=== PATIENT | male | born 1950 | race American Indian/Alaskan Native ===

== ENCOUNTER 2016-06-28 13:00 | Emergency (ER) | payer MEDICARE ==
[2016-06-28 15:36] LABS: Hematocrit 46.6 % (35.5-45.6); Hemoglobin 14.7 gm/dl (11.8-15.2); Mean Corpuscular HGB Conc 32 % (32-34); Mean Corpuscular Hemoglobin 29 pg (28-32); Mean Corpuscular Volume 90 fl (84-94); Platelet Count 274 K/mm3 (140-440); Red Blood Count 5.16 M/mm3 (3.65-5.03); Red Cell Distribution Width 17.3 % (13.2-15.2); White Blood Count 12.6 K/mm3 (4.5-11.0)
[2016-06-28 15:36] LABS: Bilirubin,Urine NEG (Negative); Blood,Urine MOD (Negative); Ketones,Urine 20 mg/dL (Negative); Leukocyte Esterase,Urine NEG (Negative); Mucus,Urine 3+ /HPF; Nitrite,Urine NEG (Negative); Urobilinogen,Urine < 2.0 mg/dL (<2.0)
[2016-06-28 16:01] LABS: Alanine Aminotransferase 10 units/L (7-56); Albumin 3.9 g/dL (3.9-5); Albumin/Globulin Ratio 0.9 %; Alkaline Phosphatase 114 units/L (35-129); Anion Gap 19 mmol/L; Bilirubin,Total 0.6 mg/dL (0.1-1.2); Blood Urea Nitrogen 12 mg/dL (9-20); Calcium 9.2 mg/dL (8.4-10.2); Carbon Dioxide 24 mmol/L (22-30); Chloride 97.8 mmol/L (98-107); Glucose 157 mg/dL (75-100); Lipase 35 units/L (13-60); Potassium 3.9 mmol/L (3.6-5.0); Sodium 137 mmol/L (137-145); Total Protein 8.1 g/dL (6.3-8.2)
[2016-06-28] MEDS ORDERED: NACL 0.9% 500 ML 500 ML IV ONE (19:44)
[2016-06-28] MEDS ORDERED: ROCEPHIN/NS 1 GM/50 ML 1 GM/50 ML BAG IV ONE (19:45)
[2016-06-28] MEDS ORDERED: NORMODYNE IV ONE (19:45)
[2016-06-28] MEDS ORDERED: NACL ONE (19:48)
--- NOTE | 2016-06-28 19:51 | Emergency Department Report ---
HPI - General Chief Complaint: Abdominal Pain Time Seen by Provider: 06/28/16 19:34 - HPI HPI: This is a 65-year-old Afro-[place] male who presents the emergency department after driving himself in to be seen with complaint of intermittent abdominal pain since Saturday. The patient says that he ate a bologna sandwich on Saturday, 4 days ago, and started having these pains at that time. The pain is been mostly in the lower abdomen but sometimes will radiate to the left and/or right flanks. Today only was associated with some nausea and some retching but there was no actual vomitus. The patient says that the pains last about 5 seconds at a time but many times per hour. Last night the patient tried drinking some Epsom salt and water and did not have any relief. He denies any past medical history but also has not seen a primary care doctor in over 10 years. No recent travel or sick contacts at home. He does have one surgical history of an umbilical hernia repair. ED Past Medical Hx - Past Medical History Previous Medical History?: No - Surgical History Past Surgical History?: Yes Additional Surgical History: umbilical hernia - Social History Smoking Status: Never Smoker Substance Use Type: Alcohol - Medications Home Medications: Home Medications Medication Instructions Recorded Confirmed Last Taken Type HYDROcodone/APAP 5-325 [Armour 1 each PO Q6HR PRN #14 tablet 06/28/16 Unknown Rx 5/325] amLODIPine [Norvasc] 5 mg PO DAILY #30 tab 06/28/16 Unknown Rx ED Review of Systems ROS: Stated complaint: ABDOMINAL PAIN Other details as noted in HPI Comment: All other systems reviewed and negative Constitutional: denies: chills, fever Eyes: denies: eye pain, eye discharge, vision change ENT: denies: ear pain, throat pain Respiratory: denies: cough, shortness of breath, wheezing Cardiovascular: denies: chest pain, palpitations Gastrointestinal: abdominal pain, nausea. denies: vomiting Genitourinary: denies: urgency, dysuria Musculoskeletal: denies: back pain, joint swelling, arthralgia Skin: denies: rash, lesions Neurological: denies: headache, weakness, paresthesias Physical Exam - Physical Exam Vital Signs: Vital Signs 06/28/16 06/28/16 06/28/16 14:32 19:27 19:31 Temperature 98.9 F Pulse Rate 106 H 114 H Respiratory 20 26 H 16 Rate Blood Pressure 153/106 Blood Pressure [Left] O2 Sat by Pulse 100 98 99 Oximetry 06/28/16 19:36 Temperature Pulse Rate Respiratory Rate Blood Pressure Blood Pressure 168/109 [Left] O2 Sat by Pulse Oximetry Physical Exam: GENERAL: The patient is well-developed well-nourished. HEENT: Normocephalic. Atraumatic. Extraocular motions are intact. Patient has moist mucous membranes. Pupils equal reactive to light bilaterally. NECK: Supple. Trachea is midline. CHEST/LUNGS: Clear to auscultation. There is no respiratory distress noted. HEART/CARDIOVASCULAR: Regular. There is mild tachycardia. There is no gallop rub or murmur. ABDOMEN: Abdomen is soft. There is some generalized tenderness to palpation of the abdomen. No guarding rebound tenderness. Patient has normal bowel sounds. There is no abdominal distention. SKIN: Skin is warm and dry. NEURO: The patient is awake, alert, and oriented. The patient is cooperative. The patient has no focal neurologic deficits. The patient has normal speech and gait. MUSCULOSKELETAL: There is no tenderness or deformity. There is no limitation range of motion. There is no evidence of acute injury. ED Course Vital Signs 06/28/16 06/28/16 06/28/16 14:32 19:27 19:31 Temperature 98.9 F Pulse Rate 106 H 114 H Respiratory 20 26 H 16 Rate Blood Pressure 153/106 Blood Pressure [Left] O2 Sat by Pulse 100 98 99 Oximetry 06/28/16 19:36 Temperature Pulse Rate Respiratory Rate Blood Pressure Blood Pressure 168/109 [Left] O2 Sat by Pulse Oximetry ED Medical Decision Making - Lab Data Result diagrams: 06/28/16 15:18 06/28/16 15:18 - EKG Data -: EKG Interpreted by Me EKG shows normal: sinus rhythm, axis, intervals, QRS complexes (Q waves to the septal leads), ST-T waves Rate: normal - EKG Data When compared to previous EKG there are: previous EKG unavailable Interpretation: other (sinus rhythm, normal axis, normal rate at 100 bpm, Q waves to the septal leads) - Radiology Data Radiology results: report reviewed, image reviewed interpreted by me: Abdominal x-ray shows some nonspecific nonobstructive bowel gas. CT of the abdomen and pelvis with IV contrast shows a 4 cm focal segment of luminal narrowing mid descending colon distention of the cecum and transverse colon and transition to nondistended: Distal to the lesion. Findings are concerning for malignancy. Multiple low-density foci within liver. Could be hemangioma. Small amount of free fluid noted within the lower pelvis. The prominence of the seminal vesicles and prostate. - Medical Decision Making 65-year-old male presents to the emergency department with complaint of a 4 day history of some generalized abdominal pain as well as some nausea. The patient' s labs show a urinary tract infection and very mild leukocytosis, otherwise the labs are mostly unremarkable including normal belly labs. Abdominal x-ray showed some nonspecific nonobstructive bowel gas. However due to the patient's discomfort and tachycardia a CT of the abdomen and pelvis with IV contrast was done. This showed a 4 some meter focal segment in the mid descending colon that led to a transition to a nondistended colon segment with concerning for a lesion and/or malignancy. The patient wanted to drive himself home and therefore did not receive any narcotic pain medication. However he received some IV fluid and this helped bring down his heart rate to more reasonable level. Patient had some hypertension and was given a dose of antihypertensives and this also showed some improvement. However the patient was started on Norvasc and we discussed dietary changes. The patient was given primary care and gastroenterology referrals and understands that he needs to follow-up for a colonoscopy to rule out malignancy/cancer as the cause of the lesion. He will return to the ER with any worsening of symptoms or any acute distress. Patient also was found to have a mild urinary tract infection. I forgot to give the patient the antibiotics upon discharge so a callback procedure has been started and the patient will be written for Macrobid to take. - Differential Diagnosis malignancy, UTI, colitis, diverticulitis, food poisoning Critical Care Time: No Critical care attestation.: If time is entered above; I have spent that time in minutes in the direct care of this critically ill patient, excluding procedure time. ED Disposition Clinical Impression: Lesion of colon, UTI (urinary tract infection) Hypertension Qualifiers: Hypertension type: essential hypertension Qualified Code(s): I10 - Essential ( primary) hypertension Abdominal pain Qualifiers: Abdominal location: generalized Qualified Code(s): R10.84 - Generalized abdominal pain Disposition: DISCHARGED TO HOME OR SELFCARE Is pt being admited?: No Condition: Stable Instructions: Abdominal Pain (ED), Hypertension (ED) Additional Instructions: Please follow-up with a primary care doctor in the next few days. Just as importantly, he needs to follow-up with a agate setter to have this intestinal narrowing/lesion evaluated for possible malignancy. Given a need a colonoscopy in the near future. I referral for a local agate setter, Dr. Ferreira. I started you on a blood pressure medication called Norvasc to be taken once a day. Keep a blood pressure log. Try to stay away from foods that are high in salt and caffeinated products to assist with your blood pressure. Return to the emergency department with any worsening of your symptoms or any acute distress. You've been prescribed a medication that is sedating. Therefore this medication cannot be mixed with alcohol, or taken prior to driving, working, or being responsible for children. Prescriptions: amLODIPine [Norvasc] 5 mg PO DAILY #30 tab HYDROcodone/APAP 5-325 [Armour 5/325] 1 each PO Q6HR PRN #14 tablet PRN Reason: Pain Referrals: GREG BOUCHER MD [Primary Care Provider] - 3-5 Days SAKSHI ALBERTS MD [Staff Physician] - 3-5 Days ISSA FERREIRA MD [Staff Physician] - 3-5 Days Time of Disposition: 23:16
[2016-06-28] MEDS ORDERED: APRESOLINE IV ONE (20:01)
--- NOTE | 2016-06-28 21:25 | Cat Scan Report ---
FINAL REPORT EXAM: CT ABDOMEN PELVIS W CON HISTORY: Abd pain TECHNIQUE: CT of the abdomen and pelvis with intravenous contrast PRIORS: None. FINDINGS: Multiple small low-density foci are present within the liver with lobular borders the largest seen is near the dome of the liver measuring 2.5 x 2.2 centimeters Spleen is normal in size pancreas demonstrates normal size and attenuation Adrenal glands are unremarkable Kidneys demonstrate symmetric contrast enhancement. There is marked dilatation of the right and transverse colon with the cecum measuring up to 8.3 centimeters in transverse diameter. There is transition mid descending colon with focal wall thickening and luminal narrowing segment measuring approximately 4.2 centimeters in length. This has an "apple core" appearance. Findings are concerning for malignancy. The distal colon is nondistended. No evidence for pathologic lymph node enlargement There is trace of free fluid in the lower pelvis. Urinary bladder is unremarkable. Seminal vesicles are prominent The appendix is not identified IMPRESSION: 4 centimeter focal segment of luminal narrowing mid descending colon distention of the cecum and transverse colon and transition to nondistended colon distal to the lesion. Findings are concerning for malignancy. Colonoscopy suggested for further evaluation Multiple low-density foci within the liver. Could be hemangioma however should be further characterized consider followup CT with hemangioma protocol or alternatively MRI. Small amount free fluid noted within the lower pelvis Prominence of the seminal vesicles and prostate. CTR protocol 2 initiated at the time of this dictation
[2016-06-28] MEDS ORDERED: NACL 0.9% 1000 ML 1,000 ML IV ONE (21:29)
[2016-06-28] MEDS ORDERED: MORPHINE IV ONE (21:30)
[2016-06-28 22:32] VITALS: BP 170/92
--- NOTE | 2016-06-29 09:18 | XRay Report ---
ABDOMEN RADIOGRAPHS INDICATION: Abdominal pain. COMPARISON: None similar at this institution. FINDINGS: Frontal abdominal radiographs demonstrate air-containing bowel loops in the upper abdomen with caliber up to 5.5 cm, difficult to reliably identify as small or large bowel. Few small nondistended mid to lower abdominal small bowel loops also noted. No other significant bowel air. No focal suspicious calcifications, pneumatosis or pneumoperitoneum. Clear visualized lung bases. EKG leads. Intact bones. CONCLUSION: Ileus versus bowel obstruction, as described. CT may help further characterize, as appropriate. Thank you for the opportunity to participate in this patient's care.
== END 2016-06-29 00:06 | disposition home or self-care (01) ==
LOC: ED 13:00
DX: N39.0 Urinary tract infection, site not specified (principal); K63.9 Disease of intestine, unspecified; I10 Essential (primary) hypertension; R10.84 Generalized abdominal pain
CPT/HCPCS: 36415; 74020; 74177; 80053; 81001; 83690; 85025; 93005; 93010; 96361; 96365; 96375; 99284; J0360; J0696; J2270; J7030; J7040; Q9967

== ENCOUNTER 2016-07-24 22:30 | Inpatient (IN) | payer MEDICARE ==
[2016-07-24 23:39] LABS: Basophils % (Auto) 0.3 % (0.0-1.8); Eosinophils % (Auto) 0.2 % (0.0-4.3); Hematocrit 46.3 % (35.5-45.6); Hemoglobin 15.1 gm/dl (11.8-15.2); Mean Corpuscular HGB Conc 33 % (32-34); Mean Corpuscular Hemoglobin 29 pg (28-32); Mean Corpuscular Volume 90 fl (84-94); Red Blood Count 5.15 M/mm3 (3.65-5.03); White Blood Count 12.7 K/mm3 (4.5-11.0)
[2016-07-25 00:01] LABS: Platelet Count 347 K/mm3 (140-440)
[2016-07-25 00:40] LABS: Albumin 4.7 g/dL (3.9-5); Albumin/Globulin Ratio 1.6 %; Alkaline Phosphatase 115 units/L (35-129); BUN/Creatinine Ratio 11.53; Bilirubin,Total 1.1 mg/dL (0.1-1.2); Blood Urea Nitrogen 15 mg/dL (9-20); Carbon Dioxide 17 mmol/L (22-30); Chloride 87.2 mmol/L (98-107); Glucose 163 mg/dL (75-100); Lipase 41 units/L (13-60); Sodium 135 mmol/L (137-145); Total Protein 7.7 g/dL (6.3-8.2)
[2016-07-25 01:27] LABS: Anion Gap 35 mmol/L; Potassium 4.7 mmol/L (3.6-5.0)
[2016-07-25 01:28] LABS: Alanine Aminotransferase 28 units/L (7-56)
[2016-07-25] MEDS ORDERED: NACL 0.9% 1000 ML 1,000 ML IV ONE (07:01)
--- NOTE | 2016-07-25 07:02 | Emergency Department Report ---
ED General Adult HPI - General Chief complaint: Abdominal Pain Stated complaint: CONSTIPATION Time Seen by Provider: 07/25/16 06:27 Source: patient, old records reviewed Mode of arrival: Ambulatory Limitations: No Limitations - History of Present Illness Initial comments: 65-year-old male presents to the emergency department complaining of constipation. Patient states that he was scheduled for colonoscopy yesterday morning. He states he took the entire preparation packet as prescribed without results. He called his wood machinist and was told to get 2 bottles of magnesium citrate. Patient states that he took these bottles, again without a bowel movement. He came to the emergency department after this. Patient states after arrival in the emergency department he had a small bowel movement. After arrival in the exam room, patient states he vomited one time. Patient denies abdominal pain, but states he feels like his abdomen is bigger than normal. Patient was seen in the emergency department for abdominal pain approximately 3 weeks ago. At that time he underwent laboratory and CT testing. Following this, gastroenterology referral was placed due to a possible malignant lesion in the colon. The colonoscopy that was scheduled for yesterday was a follow-up to this emergency department visit. There are no other complaints. -: Gradual, days(s) (1) Location: abdomen Severity scale (0 -10): 0 Improves with: none Worsens with: none Associated Symptoms: nausea/vomiting - Related Data Previous Rx's Medication Instructions Recorded Last Taken Type amLODIPine [Norvasc] 5 mg PO DAILY #30 tab 06/28/16 07/24/16 Rx Allergies Allergy/AdvReac Type Severity Reaction Status Date / Time No Known Allergies Allergy Unverified 06/28/16 14:49 ED Review of Systems ROS: Stated complaint: CONSTIPATION Other details as noted in HPI Comment: All other systems reviewed and negative Gastrointestinal: nausea, vomiting, constipation ED Past Medical Hx - Past Medical History Previous Medical History?: Yes Hx Hypertension: Yes Additional medical history: Recent ABD Pain - Surgical History Past Surgical History?: Yes Additional Surgical History: umbilical hernia - Family History Family history: no significant - Social History Smoking Status: Never Smoker Substance Use Type: None - Medications Home Medications: Home Medications Medication Instructions Recorded Confirmed Last Taken Type amLODIPine [Norvasc] 5 mg PO DAILY #30 tab 06/28/16 07/25/16 07/24/16 Rx ED Physical Exam - General Limitations: No Limitations General appearance: alert, in no apparent distress - Head Head exam: Present: atraumatic, normocephalic - Eye Eye exam: Present: normal appearance, PERRL, EOMI - ENT ENT exam: Present: normal exam, normal orophraynx, mucous membranes moist - Neck Neck exam: Present: normal inspection, full ROM. Absent: tenderness - Respiratory Respiratory exam: Present: normal lung sounds bilaterally. Absent: respiratory distress - Cardiovascular Cardiovascular Exam: Present: normal rhythm, tachycardia, normal heart sounds - GI/Abdominal GI/Abdominal exam: Present: soft, distended, hyperactive bowel sounds. Absent: tenderness - Extremities Exam Extremities exam: Present: normal inspection, full ROM. Absent: tenderness - Back Exam Back exam: Present: normal inspection, full ROM. Absent: tenderness - Neurological Exam Neurological exam: Present: alert, oriented X3. Absent: motor sensory deficit - Skin Skin exam: Present: warm, dry, intact ED Course Vital Signs 07/24/16 07/25/16 07/25/16 22:50 02:29 04:00 Temperature 97.5 F L 98.3 F Pulse Rate 120 H 112 H 120 H Respiratory 18 18 18 Rate Blood Pressure 138/97 Blood Pressure 116/85 114/85 [Right] O2 Sat by Pulse 97 98 98 Oximetry 07/25/16 06:00 Temperature Pulse Rate 109 H Respiratory 18 Rate Blood Pressure Blood Pressure 129/95 [Right] O2 Sat by Pulse 97 Oximetry ED Medical Decision Making - Lab Data Result diagrams: 07/24/16 23:19 07/24/16 23:19 - Radiology Data Radiology results: report reviewed, image reviewed Abdominal x-ray shows dilated bowel loops throughout the abdomen with air-fluid levels. This is worse compared to his previous x-ray. - Medical Decision Making Lab and imaging results reviewed and discussed with the patient. I have spoken with Dr. Ghosh GI. He is requesting patient to be admitted for inpatient evaluation of the bowel obstruction. Surgery, Dr. Stover, has also been consulted. Patient is to be admitted by the hospitalist. - Differential Diagnosis constipation, bowel obstruction, dehydration Critical care attestation.: If time is entered above; I have spent that time in minutes in the direct care of this critically ill patient, excluding procedure time. ED Disposition Clinical Impression: Bowel obstruction Qualifiers: Intestinal obstruction type: other intestinal obstruction Qualified Code(s): K56.69 - Other intestinal obstruction Disposition: OP ADMITTED IP TO THIS HOSP Is pt being admited?: Yes Condition: Stable Referrals: PRIMARY CARE, [Primary Care Provider] - 3-5 Days Time of Disposition: 09:26
--- NOTE | 2016-07-25 07:46 | XRay Report ---
ABDOMEN, 2 views: History: Abdominal pain, constipation. The abdominal films and CT abdomen pelvis performed 06/28/16 were reviewed. Today's exam demonstrates borderline to mildly dilated loops of bowel throughout the abdomen and moderate air-fluid levels. No free air is appreciated. No pathologic calcifications. The lung bases are clear. IMPRESSION: Borderline to mildly dilated loops of bowel with air-fluid levels concerning for a partial obstruction. This is slightly worse when comparing to the exam dated 06/28/16.
--- NOTE | 2016-07-25 08:53 | Admit Criteria Form ---
Admission Criteria Documentation: ABDOMINAL PAIN Clinical Indications for Admission to Inpatient Care (Place 'X' for any and all applicable criteria): Admission is indicated for ANY ONE of the following(1)(2)(3)(4)(5): [ X]I. Inpatient admission required rather than observation care (Also use Abdominal Pain: Observation Care, as appropriate) because of ANY ONE of the following: [ ]a) Severe pain requiring acute inpatient management [ ]b) Identification of etiology/finding that requires inpatient care (eg, aortic dissection, free air) [ ]c) Absent bowel sounds with complete ileus(6) [ ]d) Suspected toxic megacolon [ ]e) Severe electrolyte abnormalities requiring inpatient care [ ]f) High fever or infection requiring inpatient admission as indicated by ANY ONE of following(7)(8): [ ] i) Appropriate outpatient or observational care antimicrobial treatment unavailable, not effective, or not feasible [ ] ii) Documented bacteremia [ ] iii) Temperature > 104.9 degrees F (oral) [ ] iv) T >103.1 F (oral) or < 96.8 F(rectal) that does not respond to all emergency treatment measures [X ]g) Signs of intestinal obstruction [B] [ ]h) Hemodynamic instability [ ]i) IV fluid to replace significant ongoing losses (greater than 3 L/m2 per day) (12)(13) [ ]j) Percutaneous or open drainage (eg, abscess, biliary tract ) procedures [ ]k) Parenteral nutrition regimen that must be implemented on inpatient basis [ ]l) Other condition,treatment or monitoring requiring inpatient admission. [ ]II. Peritoneal signs present [ ]III. Surgery needed that cannot be performed on an ambulatory basis. [ ]IV. Evaluation requires patient to not eat or drink for extended period ( eg, more than 24 hours). [ ]V. Contraindications and/or Inappropriate clinical situations for Observational Care in patients with abdominal pain, when ANY ONE of the following is required: [ ]a) Thorough evaluation is required to prevent catastrophic events due to delays in diagnosing (e.g.Mesenteric ischemia) 1,3 [ ]b) Patient with severe pathology or with chronic symptoms unlikely to improve in the ED stay (3) [ ]. General contraindications and/or Inappropriate clinical situations for Observational Care in patients with abdominal pain, when ANY ONE of the following is required: [ ]a) Prediction of prolongation of LOS based on ANY ONE of the following may be considered as a contraindication for observational care 2, 3, 4, 5, 6, 7, 8, 9, 10, 11 [ ]i) Age > 65 yrs. [ ]ii) Patient arriving by ambulance [ ]iii) Patient with high acuity [ ]iv) Patient requiring vital sign monitoring [ ]v) Patient on IV medication [ ]b) Systolic blood pressures 180mmHg 3,12 [ ]c) Patient with altered mental status including delirium and other alteration of consciousness, (3) [ ]d) Patient whose discharge disposition will be to a detention home or rehabilitation home should not be managed in Emergency Department Observation Unit. CMS rule requires 3 days hospital stay before such placement.3,13 [ ]e) Patient with failure to thrive due to broad array of etiologies 3,16,17 [ ]f) Inability to ambulate 3,14 Extended stay beyond goal length of stay may be needed for(2)(3): [ ]a) Persistent abdominal pain with suspected intra-abdominal process [ ]b) Diagnosed condition requiring continued stay (e.g., pancreatitis, complicated diverticulitis) [ ]c) Surgery (e.g., colectomy) The original [facility] content created by [employer] has been revised. The portions of the content which have been revised are identified through the use of italic text or in bold, and [facility] has neither reviewed nor approved the modified material.All other unmodified content is copyright [facility]. Please see references footnoted in the original [facility] edition 2016 Admission Criteria Met: Yes
[2016-07-25 09:57] LABS: Bacteria,Urine 1+ /HPF (Negative); Bilirubin,Urine NEG (Negative); Blood,Urine NEG (Negative); Ketones,Urine 20 mg/dL (Negative); Leukocyte Esterase,Urine NEG (Negative); Mucus,Urine 3+ /HPF; Nitrite,Urine NEG (Negative)
[2016-07-25] MEDS ORDERED: ZOFRAN IV PRN (10:46)
[2016-07-25] MEDS ORDERED: TYLENOL PO PRN (10:46)
[2016-07-25] MEDS ORDERED: DULCOLAX PR PRN (10:46)
[2016-07-25] MEDS ORDERED: MILK OF MAGNESIA PO PRN (10:46)
[2016-07-25] MEDS ORDERED: APRESOLINE IV PRN (10:59)
--- NOTE | 2016-07-25 10:59 | History and Physical Report ---
History of Present Illness Chief complaint: Abdominal pain History of present illness: 65-year-old man with a past medical history of mild hypertension who presents after inability to pass a bowel movement. He states that he was seen in the hospital about 3 weeks ago for abdominal pain and was found to have a luminal narrowing in the colon suspicious for malignancy for which she was referred to Dr. Sudhakar Watts of gastroenterology. He was scheduled for outpatient colonoscopy, he drank all his bowel prep and still had no bowel movement he then went on to have some magnesium citrate and still was unable to pass any bowel movements. He then presented here to the ER shortly after presenting here he had a very small bowel movement and vomited 1. He is having generalized abdominal pain. Also notes x-ray done in the ER showed distended bowel loops consistent with partial small bowel obstruction. He denies fevers, denies chills, denies dysuria Past History Past Medical History: hypertension Past Surgical History: hernia repair (umbilical) Social history: no significant social history Family history: no significant family history Medications and Allergies Allergies Allergy/AdvReac Type Severity Reaction Status Date / Time No Known Allergies Allergy Unverified 06/28/16 14:49 Home Medications Medication Instructions Recorded Confirmed Last Taken Type amLODIPine [Norvasc] 5 mg PO DAILY #30 tab 06/28/16 07/25/16 07/24/16 Rx Review of Systems All systems: negative Constitutional: weakness Gastrointestinal: abdominal pain, nausea, vomiting, constipation Exam - Constitutional Vitals: Temp Pulse Resp BP Pulse Ox 98.3 F 109 H 18 129/95 97 07/25/16 02:29 07/25/16 06:00 07/25/16 06:00 07/25/16 06:00 07/25/16 06:00 General appearance: Present: no acute distress, well-nourished - EENT Eyes: Present: PERRL ENT: hearing intact, clear oral mucosa - Neck Neck: Present: supple, normal ROM - Respiratory Respiratory effort: normal Respiratory: bilateral: CTA - Cardiovascular Heart Sounds: Present: S1 & S2. Absent: rub, click - Extremities Extremities: pulses symmetrical, No edema Peripheral Pulses: within normal limits - Abdominal General gastrointestinal: Present: soft, distended, hypoactive bowel sounds Localized gastrointestinal: tender: diffuse Male genitourinary: Present: normal - Integumentary Integumentary: Present: clear, warm, dry - Musculoskeletal Musculoskeletal: gait normal, strength equal bilaterally - Psychiatric Psychiatric: appropriate mood/affect, intact judgment & insight - Neurologic Neurologic: CNII-XII intact, moves all extremities Results - Labs CBC & Chem 7: 07/24/16 23:19 07/24/16 23:19 Labs: Laboratory Last Values WBC 12.7 K/mm3 (4.5-11.0) H 07/24/16 23: RBC 5.15 M/mm3 (3.65-5.03) H 07/24/16 23:19 Hgb 15.1 gm/dl (11.8-15.2) 07/24/16 23:19 Hct 46.3 % (35.5-45.6) H 07/24/16 23:19 MCV 90 fl (84-94) 07/24/16 23: MCH 29 pg (28-32) 07/24/16 23: MCHC 33 % (32-34) 07/24/16 23: RDW 16.0 % (13.2-15.2) H 07/24/16 23: Plt Count 347 K/mm3 (140-440) 07/24/16 23:19 Lymph % (Auto) 16.0 % (13.4-35.0) 07/24/16 23: [place] % (Auto) 6.0 % (0.0-7.3) 07/24/16 23: Eos % (Auto) 0.2 % (0.0-4.3) 07/24/16 23: Baso % (Auto) 0.3 % (0.0-1.8) 07/24/16 23: Lymph # 2.0 K/mm3 (1.2-5.4) 07/24/16 23:19 [place] # 0.8 K/mm3 (0.0-0.8) 07/24/16 23: Eos # 0.0 K/mm3 (0.0-0.4) 07/24/16 23:19 Baso # 0.0 K/mm3 (0.0-0.1) 07/24/16 23:19 Seg Neutrophils % 77.5 % (40.0-70.0) H 07/24/16 23: Seg Neutrophils # 9.8 K/mm3 (1.8-7.7) H 07/24/16 23:19 Sodium 135 mmol/L (137-145) L 07/24/16 23:19 Potassium 4.7 mmol/L (3.6-5.0) 07/24/16 23:19 Chloride 87.2 mmol/L (98-107) L 07/24/16 23:19 Carbon Dioxide 17 mmol/L (22-30) L 07/24/16 23:19 Anion Gap 35 mmol/L 07/24/16 23:19 BUN 15 mg/dL (9-20) 07/24/16 23:19 Creatinine 1.3 mg/dL (0.8-1.5) 07/24/16 23:19 Estimated GFR > 60 ml/min 07/24/16 23: BUN/Creatinine Ratio 11.53 % 07/24/16 23:19 Glucose 163 mg/dL (75-100) H 07/24/16 23: Calcium 10.0 mg/dL (8.4-10.2) 07/24/16 23: Total Bilirubin 1.1 mg/dL (0.1-1.2) 07/24/16 23:19 AST 31 units/L (5-40) 07/24/16 23: ALT 28 units/L (7-56) 07/24/16 23:19 Alkaline Phosphatase 115 units/L (35-129) 07/24/16 23:19 Total Protein 7.7 g/dL (6.3-8.2) 07/24/16 23: Albumin 4.7 g/dL (3.9-5) 07/24/16 23:19 Albumin/Globulin Ratio 1.6 % 07/24/16 23:19 Lipase 41 units/L (13-60) 07/24/16 23:19 Urine Color Torri (Yellow) 07/25/16 09:10 Urine Turbidity Slightly-cloudy (Clear) 07/25/16 09:10 Urine pH 5.0 (5.0-7.0) 07/25/16 09:10 Ur Specific [place] 1.025 (1.003-1.030) 07/25/16 09:10 Urine Protein 30 mg/dl mg/dL (Negative) 07/25/16 09:10 Urine Glucose (UA) Neg mg/dL (Negative) 07/25/16 09:10 Urine Ketones 20 mg/dL (Negative) 07/25/16 09:10 Urine Blood Neg (Negative) 07/25/16 09:10 Urine Nitrite Neg (Negative) 07/25/16 09:10 Urine Bilirubin Neg (Negative) 07/25/16 09:10 Urine Urobilinogen 2.0 mg/dL (<2.0) 07/25/16 09:10 Ur Leukocyte Esterase Neg (Negative) 07/25/16 09:10 Urine WBC (Auto) 10.0 /HPF (0.0-6.0) H 07/25/16 09:10 Urine RBC (Auto) 8.0 /HPF (0.0-6.0) 07/25/16 09:10 U Epithel Cells (Auto) 3.0 /HPF (0-13.0) 07/25/16 09:10 Urine Bacteria (Auto) 1+ /HPF (Negative) 07/25/16 09:10 Hyaline Casts 26 /LPF 07/25/16 09:10 Urine Mucus 3+ /HPF 07/25/16 09:10 - Imaging and Cardiology Abdominal x-ray: image reviewed (distended loops of bowel consistent with partial bowel obstruction) Assessment and Plan Assessment and plan: 65-year-old man with past medical history of mild hypertension who presents with abdominal pain and inability to pass bowel movement after completing bowel prep which was for colonoscopy and I will schedule an outpatient. He came into the ED and was found to have partial small bowel obstruction 1. Small bowel obstruction Keep nothing by mouth, IV fluids and pain medications and antiemetics ordered. 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 the KUB this admission suggest SBO secondary to distal obstruction in the left colon. I recc expl lap with left colon resection, diverting end colostomy in view of absence of prep. He needs NG decompression and iv hydration. I really see no role for colonoscopy since he is obstructed anyway and it will not change our management. I will discuss with GI. I will place the patient on the schedule for Surgery tommorrow." 2. Hypertension Deep IV medications as needed, keep nothing by mouth 3. Pyuria This is mild, low suspicion of UTI, will obtain Urine cx to r/o UTI 4. SIRS likely 2/2 Acute SBO, rx underlying cause.
--- NOTE | 2016-07-25 14:36 | Consultation ---
History of Present Illness Consult date: 07/25/16 Reason for consult: other (abd distension) - History of present illness History of present illness: Pleasant 65 year old male with hx of progressive abd distension and constipation seen in the ER and refered to Dr. Watts (GI), underwent attempted bowel prep and was scheduled for colonoscopy, pt admitted with abd pain and increasing abd distension following bowel prep. The patient is otherwise healthy , no family hx of colon cancer, Berrios syndrome ,etc. He never has had a colonoscopy. He denies weight loss, A CEA was drawn in the ER. Past History Past Medical History: hypertension Past Surgical History: hernia repair (umbilical) Social history: no significant social history Family history: no significant family history Medications and Allergies Allergies Allergy/AdvReac Type Severity Reaction Status Date / Time No Known Allergies Allergy Unverified 06/28/16 14:49 Home Medications Medication Instructions Recorded Confirmed Last Taken Type amLODIPine [Norvasc] 5 mg PO DAILY #30 tab 06/28/16 07/25/16 07/24/16 Rx Active Meds: Active Medications Acetaminophen (Tylenol) 650 mg PO Q4H PRN PRN Reason: Pain MILD(1-3)/Fever >100.5/MANN Bisacodyl (Dulcolax) 10 mg NM QDAY PRN PRN Reason: Constipation unrelieved by MOM Enoxaparin Sodium (Lovenox) 40 mg SUB-Q QDAY FRANCISCO Hydralazine HCl (Apresoline) 10 mg IV Q4HR PRN PRN Reason: BP >160/100 Dextrose/Sodium Chloride (D5/0.45ns) 1,000 mls @ 100 mls/hr IV DIRECT FRANCISCO Magnesium Hydroxide (Milk Of Magnesia) 30 ml PO Q4H PRN PRN Reason: Constipation Morphine Sulfate (Morphine) 2 mg IV Q4H PRN PRN Reason: Pain, Moderate (4-6) Ondansetron HCl (Zofran) 4 mg IV Q8H PRN PRN Reason: N/V unrelieved by Reglan Review of Systems - Constitutional other (abd pain and abd distension) Exam Vital Signs Temp Pulse Resp BP Pulse Ox 97.5 F L 120 H 18 116/85 97 07/24/16 22:50 07/24/16 22:50 07/24/16 22:50 07/24/16 22:50 07/24/16 22:50 - General physical appearance Positive: no distress - Eyes Positive: PERRL, normal occular movement - ENT Positive: normal pinna, normal nares, normal mucosa, no hearing loss, no congestion - Neck Positive: no masses, no bruits, trachea midline, no venous distension - Respiratory Positive: normal expansion, normal respiratory effort, clear to auscultation - Cardiovascular Rhythm: regular Heart Sounds: Present: S1 & S2. 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 the KUB this admission suggest SBO secondary to distal obstruction in the left colon. I recc expl lap with left colon resection, diverting end colostomy in view of absence of prep. He needs NG decompression and iv hydration. I really see no role for colonoscopy since he is obstructed anyway and it will not change our management. I will discuss with GI. I will place the patient on the schedule for Surgery tommorrow.
--- NOTE | 2016-07-25 16:17 | Anesthesia Consultation ---
Anesthesia Consult and Med Hx - Airway Anesthetic Teeth Evaluation: Poor (many missing teeth denies loose teeth) ROM Head & Neck: Adequate Mental/Hyoid Distance: Adequate Mallampati Class: Class III Intubation Access Assessment: Possibly Difficult - Pulmonary Exam CTA: Yes - Cardiac Exam Cardiac Exam: RRR - Pre-Operative Health Status ASA Pre-Surgery Classification: ASA2, ASA3 Proposed Anesthetic Plan: General - Pulmonary Hx Smoking: No - Cardiovascular System Hx Hypertension: Yes Hx Heart Attack/AMI: No - Central Nervous System CVA: Yes (1975) - Gastrointestinal Hx Gastroesophageal Reflux Disease: Yes (controlled on meds) - Other Systems Hx Alcohol Use: Yes () Hx Cancer: No - Additional Comments Anesthesia Medical History Comments: NPO after MN. No prior anesthesia complications. Pt's weight is 156 pounds. Pt presents with possible SBO.
--- NOTE | 2016-07-25 18:49 | Gastroenterology Consultation ---
History of Present Illness - Reason for Consult Consult date: 07/25/16 colonic obstruction Requesting physician: LONDON KOWALSKI - History of Present Illness The patient is a 65 year old man who seen recently by Dr. Orestes Watts in our practice for suspected distal colonic mass. CT scan from 06/28/16 revealed a 4 cm "apple core" lesion in the mid descending colon with proximal colonic distention. He had been having recurrent abdominal pain and intermittent distention for the past few months. Colonoscopy was scheduled this week for evaluation, however, the patient became progressively distended and did not tolerate the prep. ER evaluation revealed distal colonic obstruction. Past History Past Medical History: hypertension Past Surgical History: hernia repair (umbilical) Social history: no significant social history Family history: no significant family history Medications and Allergies Allergies Allergy/AdvReac Type Severity Reaction Status Date / Time No Known Allergies Allergy Unverified 06/28/16 14:49 Home Medications Medication Instructions Recorded Confirmed Last Taken Type amLODIPine [Norvasc] 5 mg PO DAILY #30 tab 06/28/16 07/25/16 07/24/16 Rx Active Meds: Active Medications Acetaminophen (Tylenol) 650 mg PO Q4H PRN PRN Reason: Pain MILD(1-3)/Fever >100.5/MANN Bisacodyl (Dulcolax) 10 mg NM QDAY PRN PRN Reason: Constipation unrelieved by MOM Enoxaparin Sodium (Lovenox) 40 mg SUB-Q QDAY FRANCISCO Famotidine (Pepcid) 20 mg IV PREOP NR Stop: 07/26/16 23:00 Hydralazine HCl (Apresoline) 10 mg IV Q4HR PRN PRN Reason: BP >160/100 Dextrose/Sodium Chloride (D5/0.45ns) 1,000 mls @ 100 mls/hr IV DIRECT FRANCISCO Lactated Ringer's (Lactated Ringers) 1,000 mls @ 75 mls/hr IV DIRECT FRANCISCO Magnesium Hydroxide (Milk Of Magnesia) 30 ml PO Q4H PRN PRN Reason: Constipation Midazolam HCl (Versed) 2 mg IV PREOP NR Stop: 07/26/16 23:59 Morphine Sulfate (Morphine) 2 mg IV Q4H PRN PRN Reason: Pain, Moderate (4-6) Ondansetron HCl (Zofran) 4 mg IV Q8H PRN PRN Reason: N/V unrelieved by Reglan Review of Systems - Review of Systems Constitutional: no weight loss, no weight gain, no fever, no chills Eyes: no change in vision, no pain Ears, Nose, Throat: no decreased hearing, no epistaxis Breasts: deferred Cardiovascular: no chest pain, no shortness of breath, no syncope Respiratory: no cough, no shortness of breath, no wheezing, no home oxygen Gastrointestinal: abdominal pain, nausea, vomiting, constipation, change in bowel habits, no BRBPR, no melena Rectal: no pain, no incontinence Male Genitourinary: deferred Musculoskeletal: no gait dysfunction, no joint pain Integumentary: no rash, no pruritis, no jaundice Neurological: no head injury, no paralysis, no weakness Psychiatric: no anxiety, no memory loss, no change in appetite Endocrine: no cold intolerance Hematologic/Lymphatic: no easy bruising, no easy bleeding Allergic/Immunologic: no wheezing Exam - Constitutional Vital Signs: Temp Pulse Resp BP Pulse Ox 99.6 F 101 H 20 152/82 100 07/25/16 15:30 07/25/16 15:30 07/25/16 15:30 07/25/16 15:30 07/25/16 15:30 General appearance: no acute distress, well-nourished - EENT Eyes: PERRL ENT: hearing intact, clear oral mucosa, dentition normal - Neck Neck: supple, normal ROM, no masses or JVD - Respiratory Respiratory effort: normal Respiratory: bilateral: CTA - Breasts Breasts: deferred - Cardiovascular Rhythm: regular Heart Sounds: Present: S1 & S2. Absent: gallop, rub Extremities: pulses intact, No edema, normal color, Full ROM - Gastrointestinal General gastrointestinal: Present: soft, non-tender, distended (moderate distention and tympany.), other (High pitched, tinkling bowel sounds). Absent: rigid, hepatomegaly, splenomegaly, mass Rectal Exam: deferred - Genitourinary Male Genitourinary: deferred - Integumentary Integumentary: Present: clear, warm, dry - Neurologic Neurological: alert and oriented x3 - Psychiatric Psychiatric: appropriate mood/affect, intact judgment & insight, memory intact - Labs CBC & Chem 7: 07/24/16 23:19 07/24/16 23:19 Assessment and Plan - Patient Problems (1) Bowel obstruction Current Visit: Yes Status: Acute Qualifiers: Intestinal obstruction type: other intestinal obstruction Qualified Code(s) : K56.69 - Other intestinal obstruction Plan to address problem: Probable descending colon cancer with classic "apple core" appearance on CT scan. The abdominal Xrays today reveal obstruction of the colon. Surgery is appropriate and patient was advised that the surgeon will likely need a diverting colostomy in this circumstance given inability to prep the colon adequately. NG suction was advised by the raúlon appropriately for decompression , although he is reluctant. I explained the rationale to help avoid perforation of the intestines and improve the post operative bowel function. He initially refused according to the nurse, but will now accept this. The son was informed of the need for family colon screening for members over 40 if this proves to be cancer as strongly suspected. He will need eventual colonoscopy in a few months or so. Thank you for asking us to be involved in his care.
[2016-07-26] MEDS ORDERED: VERSED IV NR (00:01)
[2016-07-26] MEDS ORDERED: PEPCID IV NR (00:01)
[2016-07-26] MEDS: D5/0.45NS 1,000 ML IV SCH ×2 (01:02→11:20)
[2016-07-26 08:27] LABS: Basophils % (Auto) 0.2 % (0.0-1.8); Eosinophils % (Auto) 0.4 % (0.0-4.3); Hematocrit 37.4 % (35.5-45.6); Hemoglobin 12.3 gm/dl (11.8-15.2); Mean Corpuscular HGB Conc 33 % (32-34); Mean Corpuscular Hemoglobin 30 pg (28-32); Mean Corpuscular Volume 90 fl (84-94); Platelet Count 272 K/mm3 (140-440); Red Blood Count 4.17 M/mm3 (3.65-5.03); Red Cell Distribution Width 15.8 % (13.2-15.2)
[2016-07-26 08:51] LABS: BUN/Creatinine Ratio 13.33; Blood Urea Nitrogen 16 mg/dL (9-20); Calcium 8.8 mg/dL (8.4-10.2); Carbon Dioxide 29 mmol/L (22-30); Chloride 96.8 mmol/L (98-107); Glucose 136 mg/dL (75-100); Sodium 141 mmol/L (137-145)
[2016-07-26 09:06] LABS: Anion Gap 18 mmol/L
[2016-07-26] MEDS ORDERED: LOVENOX SUB-Q SCH (10:00)
[2016-07-26] MEDS ORDERED: SUBLIMAZE ONE (11:31)
[2016-07-26] MEDS ORDERED: XYLOCAINE MPF 2% ONE (11:31)
[2016-07-26] MEDS ORDERED: ZEMURON IV ONE (11:31)
[2016-07-26] MEDS ORDERED: DIPRIVAN 10 MG/ML IV ONE ×2 (11:31→14:53)
[2016-07-26] MEDS ORDERED: FLAGYL 500 MG/100 ML 500 MG/100 ML BAG IV NR (12:00)
[2016-07-26] MEDS ORDERED: ANCEF/STERILE WATER 2 GM/20 ML IV NR (12:00)
[2016-07-26] MEDS ORDERED: LACTATED RINGERS 1,000 ML ONE ×3 (12:04→16:05)
--- NOTE | 2016-07-26 12:14 | Progress Note ---
Assessment and Plan Assessment and plan: Intestinal obstruction likely from colonic mass - Patient will have exploratory laparatomy - Surgery and GI consult appreciated - On IV fluids, electrolyte replacement - We'll follow closely Disposition -We will continue inpatient care History Interval history: Patient was seen and evaluated this morning, abdominal swelling is getting better, he passed gas. Hospitalist Physical - Physical exam Narrative exam: Not in cardiopulmonary distress. NG tube in place. The patient appeared well nourished and normally developed. Vital signs as documented. Head exam is unremarkable. No scleral icterus . Neck is without jugular venous distension, thyromegaly, or carotid bruits. Lungs are clear to auscultation. Cardiac exam reveals regular rate and Rhythm. First and second heart sounds normal. No murmurs, rubs or gallops. Abdominal exam reveals distended, soft non tende abdomen. Extremities are nonedematous and both femoral and pedal pulses are normal. YARN EXAMINER SKEINS: Alert and oriented 3. No focal weakness. - Constitutional Vitals: Temp Pulse Resp BP Pulse Ox 98.5 F 93 H 20 161/93 95 07/26/16 11:59 07/26/16 11:59 07/26/16 11:59 07/26/16 11:59 07/26/16 11:59 General appearance: Present: no acute distress, well-nourished Results - Labs CBC & Chem 7: 07/26/16 07:05 07/26/16 07:05 Labs: Laboratory Last Values WBC 10.0 K/mm3 (4.5-11.0) 07/26/16 07:05 RBC 4.17 M/mm3 (3.65-5.03) 07/26/16 07:05 Hgb 12.3 gm/dl (11.8-15.2) 07/26/16 07:05 Hct 37.4 % (35.5-45.6) D 07/26/16 07:05 MCV 90 fl (84-94) 07/26/16 07:05 MCH 30 pg (28-32) 07/26/16 07:05 MCHC 33 % (32-34) 07/26/16 07:05 RDW 15.8 % (13.2-15.2) H 07/26/16 07:05 Plt Count 272 K/mm3 (140-440) 07/26/16 07:05 Lymph % (Auto) 18.9 % (13.4-35.0) 07/26/16 07:05 [place] % (Auto) 9.9 % (0.0-7.3) H 07/26/16 07:05 Eos % (Auto) 0.4 % (0.0-4.3) 07/26/16 07:05 Baso % (Auto) 0.2 % (0.0-1.8) 07/26/16 07:05 Lymph # 1.9 K/mm3 (1.2-5.4) 07/26/16 07:05 [place] # 1.0 K/mm3 (0.0-0.8) H 07/26/16 07:05 Eos # 0.0 K/mm3 (0.0-0.4) 07/26/16 07:05 Baso # 0.0 K/mm3 (0.0-0.1) 07/26/16 07:05 Seg Neutrophils % 70.6 % (40.0-70.0) H 07/26/16 07:05 Seg Neutrophils # 7.0 K/mm3 (1.8-7.7) 07/26/16 07:05 Sodium 141 mmol/L (137-145) 07/26/16 07:05 Potassium 3.0 mmol/L (3.6-5.0) L D 07/26/16 07:05 Chloride 96.8 mmol/L (98-107) L 07/26/16 07:05 Carbon Dioxide 29 mmol/L (22-30) D 07/26/16 07:05 Anion Gap 18 mmol/L 07/26/16 07:05 BUN 16 mg/dL (9-20) 07/26/16 07:05 Creatinine 1.2 mg/dL (0.8-1.5) 07/26/16 07:05 Estimated GFR > 60 ml/min 07/26/16 07:05 BUN/Creatinine Ratio 13.33 % 07/26/16 07:05 Glucose 136 mg/dL (75-100) H 07/26/16 07:05 Calcium 8.8 mg/dL (8.4-10.2) 07/26/16 07:05 Total Bilirubin 1.1 mg/dL (0.1-1.2) 07/24/16 23:19 AST 31 units/L (5-40) 07/24/16 23:19 ALT 28 units/L (7-56) 07/24/16 23:19 Alkaline Phosphatase 115 units/L (35-129) 07/24/16 23:19 Total Protein 7.7 g/dL (6.3-8.2) 07/24/16 23:19 Albumin 4.7 g/dL (3.9-5) 07/24/16 23:19 Albumin/Globulin Ratio 1.6 % 07/24/16 23:19 Lipase 41 units/L (13-60) 07/24/16 23:19 Urine Color Torri (Yellow) 07/25/16 09:10 Urine Turbidity Slightly-cloudy (Clear) 07/25/16 09:10 Urine pH 5.0 (5.0-7.0) 07/25/16 09:10 Ur Specific [place] 1.025 (1.003-1.030) 07/25/16 09:10 Urine Protein 30 mg/dl mg/dL (Negative) 07/25/16 09:10 Urine Glucose (UA) Neg mg/dL (Negative) 07/25/16 09:10 Urine Ketones 20 mg/dL (Negative) 07/25/16 09:10 Urine Blood Neg (Negative) 07/25/16 09:10 Urine Nitrite Neg (Negative) 07/25/16 09:10 Urine Bilirubin Neg (Negative) 07/25/16 09:10 Urine Urobilinogen 2.0 mg/dL (<2.0) 07/25/16 09:10 Ur Leukocyte Esterase Neg (Negative) 07/25/16 09:10 Urine WBC (Auto) 10.0 /HPF (0.0-6.0) H 07/25/16 09:10 Urine RBC (Auto) 8.0 /HPF (0.0-6.0) 07/25/16 09:10 U Epithel Cells (Auto) 3.0 /HPF (0-13.0) 07/25/16 09:10 Urine Bacteria (Auto) 1+ /HPF (Negative) 07/25/16 09:10 Hyaline Casts 26 /LPF 07/25/16 09:10 Urine Mucus 3+ /HPF 07/25/16 09:10
[2016-07-26] MEDS ORDERED: NACL BACTERIOSTATIC INFILTRATI ONE (12:25)
--- NOTE | 2016-07-26 12:33 | Anesthesia Day of Surgery ---
Anesthesia Day of Surgery - Day of Surgery Patient Examined: Yes Patient H&P Reviewed: Yes Patient is NPO: Yes
[2016-07-26] MEDS ORDERED: QUELICIN ONE (13:07)
[2016-07-26] MEDS ORDERED: ePHEDrine SULFATE ONE (13:37)
[2016-07-26] MEDS ORDERED: ROBINUL ONE (13:50)
[2016-07-26] MEDS ORDERED: NEOSTIGMINE ONE (13:50)
[2016-07-26] MEDS ORDERED: DECADRON ONE (13:51)
[2016-07-26] MEDS ORDERED: ZOFRAN ONE (13:51)
[2016-07-26] MEDS ORDERED: TORADOL ONE (13:59)
[2016-07-26] MEDS ORDERED: NACL 0.9% 1000 ML ONE (14:17)
[2016-07-26] MEDS ORDERED: NACL 0.9% IR ONE (14:31)
[2016-07-26] MEDS ORDERED: DILAUDID ONE ×2 (14:35→15:39)
--- NOTE | 2016-07-26 15:23 | Post Operative Note ---
Pre-op diagnosis: obstructive left colon mass Post-op diagnosis: other (obstructive colon cancer) Findings: obstructive colon cancer in desc colon Procedure: Exploratory laparotomy, takedown of spleenic flexure, left hemicolectomy,end colostomy, Hartmans pouch. Anesthesia: LINN Surgeon: LIN REA Spacecraft Systems Engineer: RON SPENCE Estimated blood loss: 50-100ml Pathology: list (left colon) Condition: stable Disposition: floor
[2016-07-26] MEDS ORDERED: MORPHINE IV PRN (15:32)
[2016-07-26] MEDS: DILAUDID IV PRN ×2 (15:40→15:50)
[2016-07-26] MEDS ORDERED: ZOFRAN IV PRN (15:54)
[2016-07-26] MEDS: KCL 10MEQ/100ML 10 MEQ/100 ML BAG IV SCH ×5 (16:02→23:08)
--- NOTE | 2016-07-26 16:27 | Operative Report ---
PREOPERATIVE DIAGNOSIS: Obstructive colon mass. POSTOPERATIVE DIAGNOSIS: Obstructive left-sided colon cancer. OPERATIVE FINDINGS: Compatible with an obstructing colon cancer in the descending colon. PROCEDURE: Exploratory laparotomy, take down of the splenic flexure, a left hemicolectomy, colostomy and Mague's pouch. ANESTHESIA: General. SURGEON: Ankush Stover M.D. BINGO USHER: Ruby Sebastian M.D. BLOOD LOSS: 50 to 100 mL. PATHOLOGY: Consisted of the left colon. CONDITION: Stable. DISPOSITION: To the floor. DESCRIPTION OF PROCEDURE: After informed consent, the patient was brought to the operating room, induced under general anesthesia. He received IV antibiotics and had compression stockings in place. A Mock catheter was placed. The patient was sterilely prepped and draped in a supine fashion after induction of anaesthesia. A standard midline incision was made from above the umbilicus down to the pubic symphysis. An Ioban drape was used. It was carried down sharply through the skin with a 15 scalpel. The subcutaneous fat was divided with the Bovie and extended down to the underlying linea alba. This was divided sharply with a 15 scalpel. The peritoneum was elevated between 2 curved hemostats. A small brian was made and the intra-abdominal cavity was entered. I extended the fascial incision to the full skin incision. We had the Bookwalter retractor in place and I placed the various blades of retractor to optimize exposure with great care to avoid the organ or spleen injury. Next, I mobilized the left colon along the white line of Toldt. The operative findings were compatible with an obstructive apple core lesion in the descending left colon, which appeared to be completely obstructed with proximal dilatation of the colon and small bowel. I made a decision to proceed. There was tissue diagnosis, but it appeared to be an obvious obstructive colon cancer. So, I basically mobilized the left colon along the white line of Toldt, identified the left ureter and spared it. Then, I took down the splenic flexure utilizing careful dissection with the radiofrequency ablation device and careful dissection and the long Bovie tip. Once I had taken down the splenic flexure, I the transverse mesocolon from the stomach with the LigaSure device. NG tube placement was confirmed in the stomach. The liver was palpated and found to be smooth with no obvious metastasis. Gallbladder appeared normal. I went distal to the area of the tumor and cleared away the mesentery from the descending colon and fired a GUILHERME-75 stapler across it and then with great care I took down the mesentery and accompanying nodes. So, I took down the white line of Toldt and then utilizing the LigaSure device, took down the mesentery careful to avoid the left ureter and to include the accompanying lymph nodes. The splenic flexure had already been taken down and then I took down the remainder of the splenic flexure as well as the distal transverse colon right up to the level of the distal to the middle colic artery. I cleared away the mesentery with the Bovie and fired a GUILHERME stapler across it and then I removed the specimen and I sent to pathology. I carefully washed out the abdomen with normal saline until clear. The proximal transverse colon appeared edematous, but quite viable and next I picked a suitable area along the anterior abdominal wall on the left side about the level of the umbilicus just on the margin of the rectus sheath and I made a circular incision and then I dissected down making a cruciate incision into the fascia. I passed three fingers through the fascial defect from the cruciate incision and then used a long [place] ring and we brought the colon through the colocolostomy site and it was matured later or after the closure of the midline wound. We washed it out again and the sponge count was correct. All of the sponge was of course were removed from the abdomen. The colon appeared pink and viable and then I closed with interrupted #1 Vicryls, jamee for the skin and Betadine soaked gloria were placed in between the jamee and the incision with a sterile dressing. I performed a delayed maturation of the end colostomy. Utilizing the curved Landrum scissors I cut away the staple line, it had excellent bleeding and appeared quite viable and I did interrupted tacking down to the skin utilizing 3-0 Vicryls and then a colostomy bag was placed. The sponge and needle counts were correct x 2 at the completion of the procedure. The patient was hemodynamically stable throughout. I would estimate the blood loss between 50 and 100 mL. Specimen consisted of the left colon, which is the distal transverse colon, splenic flexure and the portion of the descending colon. The distal margin of the specimen was marked with a long 3-0 Vicryl. [facility]# [id number] KAPIL/JAVON ROTH
[2016-07-26] MEDS ORDERED: LACTATED RINGERS 1,000 ML IV SCH (17:00)
[2016-07-26] MEDS: MORPHINE IV PRN (20:41)
[2016-07-27] MEDS: HEPARIN SUB-Q SCH ×4 (00:28→22:02)
[2016-07-27] MEDS: ZOSYN IV SCH ×2 (00:28→05:20)
[2016-07-27] MEDS: NS IV SCH ×2 (00:28→05:20)
--- NOTE | 2016-07-27 02:00 | Post Anesthesia Evaluation ---
- Post Anesthesia Evaluation Patient Participated: Yes Airway Patent: Yes Stable Respiratory Function: Yes Nausea/Vomiting: No Temp > 96.8F: Yes Pain Manageable: Yes Adequeate Hydration: Yes Anesthesia Complications: No Block Receding Appropriately: Not Applicable Patient on Ventilator: No
[2016-07-27] MEDS: MORPHINE IV PRN ×2 (05:17→18:24)
[2016-07-27] MEDS: D5/0.45NS 1,000 ML IV SCH (05:24)
[2016-07-27 05:30] LABS: Basophils % (Auto) 0.1 % (0.0-1.8); Hematocrit 35.3 % (35.5-45.6); Hemoglobin 11.6 gm/dl (11.8-15.2); Mean Corpuscular HGB Conc 33 % (32-34); Mean Corpuscular Hemoglobin 29 pg (28-32); Mean Corpuscular Volume 89 fl (84-94); Platelet Count 236 K/mm3 (140-440); Red Blood Count 3.98 M/mm3 (3.65-5.03); Red Cell Distribution Width 15.7 % (13.2-15.2); White Blood Count 9.7 K/mm3 (4.5-11.0)
[2016-07-27 05:53] LABS: Alanine Aminotransferase 15 units/L (7-56); Albumin 2.6 g/dL (3.9-5); Albumin/Globulin Ratio 1.1 %; Alkaline Phosphatase 63 units/L (35-129); Anion Gap 16 mmol/L; BUN/Creatinine Ratio 11.81; Bilirubin,Total 1.4 mg/dL (0.1-1.2); Blood Urea Nitrogen 13 mg/dL (9-20); Calcium 7.6 mg/dL (8.4-10.2); Carbon Dioxide 28 mmol/L (22-30); Chloride 98.6 mmol/L (98-107); Glucose 133 mg/dL (75-100); Potassium 3.1 mmol/L (3.6-5.0); Sodium 139 mmol/L (137-145)
--- NOTE | 2016-07-27 07:51 | Event Note ---
Date: 07/27/16 POD 1 s/p expl lap left colectomy, end colostomy, Hartmans pouch for obstructive colon cancer, final path pending, CEA pending, hemodyn stable, low K -treated, will d/c Zosyn and change to levaquin and flagyll, pain controlled with iv narcotics, need pic line , TPN, DVT prophylaxis, d/c NG, NPO except ice chips, d/c fernandes, PT consult, WOC nurse consult. labs OK.
[2016-07-27 08:41] LABS: Magnesium 1.9 mg/dL (1.7-2.3)
[2016-07-27] MEDS: KCL 10MEQ/100ML 10 MEQ/100 ML BAG IV SCH ×4 (10:34→19:13)
--- NOTE | 2016-07-27 11:46 | Query-Infection ---
"Dearaul Early Date:_07/27/16 Health Diagnostics Teacher/CDS:Joshua Ling Phone#:_[phone] Exercise your independent professional judgment when responding to this query. Questions asked do not imply a particular answer is desired or expected. We greatly appreciate your clarification on this issue. Clinical Documentation States: 65-year-old man with a past medical history of mild hypertension who presents after inability to pass a bowel movement. He states that he was seen in the hospital about 3 weeks ago for abdominal pain and was found to have a luminal narrowing in the colon suspicious for malignancy for which she was referred to Dr. Sudhakar Watts of gastroenterology. Clinical findings show: (please check applicable parameters) Infection, known /suspected, with some of the following indicators; Specify the infection: UTI WBC: 12.7 HR: 120 3 General parameters [ ] Fever (core temp >38.30C or 100.40F) [ ] Hypothermia (core temp <36C) [ ] Heart rate >90 bpm [ ] Tachypnea: >20 bpm or pCO2 < 32 mmHg [ ] Altered mental status [ ] Significant edema / +ve fluid balance (>20 ml/kg 24 h) [ ] Hyperglycemia (Bl. glucose >110 mg/dl) w/o diabetes Inflammatory parameters [ ] Leukocytosis (white blood cell count >12,000/l) [ ] Leukopenia (white blood cell count <4,000/l) [ ] Bandemia (immature WBC > 10%) [ ] Leucocyte Left Shift [ ] Plasma procalcitonin>2 SD above the normal value Hemodynamic and tissue perfusion parameters [ ] Arterial hypotension(SBP <90 mmHg, MAP <70 mmHg,or a SBP drop >40 mmHg in adults) [ ] Hyperlactatemia (>3 mmol/l) [ ] Anion Gap (> 11mEG/l) [ ] Decreased capillary refill or mottling Organ dysfunction parameters [ ] Arterial hypoxemia (PaO2/FIO2 <300) [ ] Creatinine increase =0.5 mg/dl [ ] Acute oliguria (urine output <0.5 ml | kg |h or 45 mM/l for at least 2 hrs) [ ] Coagulation abnormalities (INR >1.5 or activated partial thromboplastin time >60 s) [ ] Ileus (absent katya wel sounds) [ ] Thrombocytopenia (platelet count <100,000/l) [ ] Hyperbilirubinemia (plasma total bilirubin >4 mg/dl) According to the clinical indications above, can Bacteremia be further specified? If so, please indicate below and in your Progress Notes and/ or Discharge Summary. Indicate if the condition was present on admission. PHYSICIAN RESPONSE: [x ] Sepsis [ ] Severe Sepsis [ ] Septic Shock [ ] Septicemia [ ] Sepsis now resolved [ ] SIRS due to non-infectious cause with organ dysfunction [ ] SIRS due to non-infectious cause without organ dysfunction [ ] Other: [ ] Comment/Explanation: Present on Admission: [x ] Yes (Y) [ ] Clinically undeterminable (W) [ ] No (N) [ ] Ruled Out Please also document response in your Progress Notes and/or Discharge Summary and indicate if the condition was present on admission Notes: SIRS/ SIRS WITH ORGAN DYSFUNCTION Systemic inflammatory response syndrome (SIRS) generally refers to the systemic response to trauma/dumont or other insult such as Acute Myocardial Infarction, Acute Pancreatitis, and Major Surgery with symptoms including fever, tachycardia , tachypnea, and leukocytosis (1). BACTEREMIA Presence of viable bacteria in the circulating blood (2). This term is reserved for patients that do not manifest above SIRS response. SEPTICEMIA Generally refers to a systemic disease associated with the presence of pathological microorganisms or toxins in the blood, which can include bacteria, viruses, fungi or other organisms (1). SEPSIS Generally refers to SIRS due infection (1). SEVERE SEPSIS Generally refers to sepsis associated with acute organ dysfunction (1). SEPTIC SHOCK Generally refers to circulatory failure associated with severe sepsis (2), and defined as hypotension or hypoperfusion despite adequate fluid resuscitation (1 hour) (3). REFERENCES: 1. [employer]/Society of Critical Care Medicine Consensus Conference. Definitions for sepsis and organ failure and guidelines for the use of innovative therapies in sepsis. Critical Care Med 1992;20:864 - 74. 2. Scott zavala MM, Chelly MP, Delroy LUCIANA, Tyler E, Javier D, Shawn D, Allan J, Jessica ARRIAZA , Sterling DRAKE, Mike G; International Sepsis Definitions Conference. 2001 SCCM/ESICM/ACCP/ATS/SIS International Sepsis Definitions Conference. Intensive Care Med. 2002;29(4):530-8. Epub 2002Jul 03. Review. PubMed PMID:[id number] 3. ICD-9-CM Official Guidelines for Coding and Reporting 4. Medscape Drugs, Diseases and Procedures references 5. Walter Textbook of Internal Medicine. 18th Edition MTDD"
--- NOTE | 2016-07-27 11:47 | Query- Nutrition ---
Dearaul Early Date:_07/27/16 Pulp Screen Operator/CDS:Joshua Ling Phone#:_[phone] Exercise your independent professional judgment when responding to query. Questions asked do not imply a particular answer is desired or expected. We greatly appreciate your clarification on this issue. Clinical Documentation States: 65-year-old man with a past medical history of mild hypertension who presents after inability to pass a bowel movement. He states that he was seen in the hospital about 3 weeks ago for abdominal pain and was found to have a luminal narrowing in the colon suspicious for malignancy for which she was referred to Dr. Sudhakar Watts of gastroenterology. Clinical Findings Show: Albumin: 2.7 Lymphocytes: 1000 Suspected malignancy of the colon Please select the most appropriate option 3 [] Mild Malnutrition [] Mild - Moderate Malnutrition [x] Moderate - Severe Malnutrition [] Severe Malnutrition Serum Albumin 2.8 to 3.4 g/dl or Pre-albumin 5 to 17 mg/dl1,2 Inadequate nutritional intake1,2,3,4 NPO > 5 days Weight loss: 5% in 1 month or 7.5% in 3 months or 10% in 6 months1, 3,4 BMI 16 to 18.4 or Weight <90% of ideal body weight1,2,3,4 Serum Albumin < 2.8 g/ dl1,2 Lymphocytes < 1500/ L2 Inadequate nutritional intake3, high stress e.g. major trauma, sepsis,pancreatitis, dumont etc. Decubitus ulcers1,2, , skin breakdown2, easy hair pluckability2 Weight <80% standard for height2 Triceps skin fold <3 mm2 Mid-arm muscle circumference <15 cm2 Creatinine-height index <60% standard2 [ ] Cachexia [ ] Emaciated w/Malnutrition [ ] Other: [ x] Unable to determine [ ] Comment/Explanation: Present on Admission: [ ] Yes (Y) [ x] Clinically undeterminable (W) [ ] No (N) Please also document response in your Progress Notes and/or Discharge Summary and indicate if the condition was present on admission. GONZALEZ
--- NOTE | 2016-07-27 12:26 | Progress Note ---
Assessment and Plan Assessment and plan: Admitted for Intestinal obstruction likely from colonic mass POD 1 s/p expl lap left colectomy, end colostomy, Hartmans pouch for obstructive colon cancer, final path pending, CEA pending, hemodyn stable, low K -treated, on levaquin and flagyll, pain controlled with iv narcotics, need pic line , TPN, DVT prophylaxis, d/c NG, NPO except ice chips, d/c fernandes, PT consult , WOC nurse consult. - Surgery and GI consult appreciated - On IV fluids, electrolyte replacement - We'll follow closely Disposition -We will continue inpatient care History Interval history: Patient was seen and evaluated this morning, status post laparotomy day 1, no abdominal pain, NG tube is in place. Patient didn't have any new complaints. Hospitalist Physical - Physical exam Narrative exam: Not in cardiopulmonary distress. NG tube in place. The patient appeared well nourished and normally developed. Vital signs as documented. Head exam is unremarkable. No scleral icterus . Neck is without jugular venous distension, thyromegaly, or carotid bruits. Lungs are clear to auscultation. Cardiac exam reveals regular rate and Rhythm. First and second heart sounds normal. No murmurs, rubs or gallops. Abdominal exam reveals midline surgical incision, with colostomy pouch. Extremities are nonedematous and both femoral and pedal pulses are normal. MANAGER UROLOGY: Alert and oriented 3. No focal weakness. - Constitutional Vitals: Temp Pulse Resp BP Pulse Ox 99.1 F 89 18 133/76 99 07/27/16 05:00 07/27/16 05:00 07/27/16 05:47 07/27/16 05:00 07/26/16 23:00 General appearance: Present: no acute distress, well-nourished Results - Labs CBC & Chem 7: 07/27/16 04:55 07/27/16 04:55 Labs: Laboratory Last Values WBC 9.7 K/mm3 (4.5-11.0) 07/27/16 04:55 RBC 3.98 M/mm3 (3.65-5.03) 07/27/16 04:55 Hgb 11.6 gm/dl (11.8-15.2) L 07/27/16 04:55 Hct 35.3 % (35.5-45.6) L 07/27/16 04:55 MCV 89 fl (84-94) 07/27/16 04:55 MCH 29 pg (28-32) 07/27/16 04:55 MCHC 33 % (32-34) 07/27/16 04:55 RDW 15.7 % (13.2-15.2) H 07/27/16 04:55 Plt Count 236 K/mm3 (140-440) 07/27/16 04:55 Lymph % (Auto) 10.0 % (13.4-35.0) L 07/27/16 04:55 Hartley % (Auto) 5.1 % (0.0-7.3) 07/27/16 04:55 Eos % (Auto) 0.0 % (0.0-4.3) 07/27/16 04:55 Baso % (Auto) 0.1 % (0.0-1.8) 07/27/16 04:55 Lymph # 1.0 K/mm3 (1.2-5.4) L 07/27/16 04:55 Hartley # 0.5 K/mm3 (0.0-0.8) 07/27/16 04:55 Eos # 0.0 K/mm3 (0.0-0.4) 07/27/16 04:55 Baso # 0.0 K/mm3 (0.0-0.1) 07/27/16 04:55 Seg Neutrophils % 84.8 % (40.0-70.0) H 07/27/16 04:55 Seg Neutrophils # 8.2 K/mm3 (1.8-7.7) H 07/27/16 04:55 Sodium 139 mmol/L (137-145) 07/27/16 04:55 Potassium 3.1 mmol/L (3.6-5.0) L 07/27/16 04:55 Chloride 98.6 mmol/L (98-107) 07/27/16 04:55 Carbon Dioxide 28 mmol/L (22-30) 07/27/16 04:55 Anion Gap 16 mmol/L 07/27/16 04:55 BUN 13 mg/dL (9-20) 07/27/16 04:55 Creatinine 1.1 mg/dL (0.8-1.5) 07/27/16 04:55 Estimated GFR > 60 ml/min 07/27/16 04:55 BUN/Creatinine Ratio 11.81 % 07/27/16 04:55 Glucose 133 mg/dL (75-100) H 07/27/16 04:55 POC Glucose 135 (70-105) H 07/26/16 21:17 Calcium 7.6 mg/dL (8.4-10.2) L 07/27/16 04:55 Phosphorus 5.0 mg/dL (2.5-4.5) H 07/27/16 04:55 Magnesium 1.9 mg/dL (1.7-2.3) 07/27/16 04:55 Total Bilirubin 1.4 mg/dL (0.1-1.2) H 07/27/16 04:55 AST 17 units/L (5-40) 07/27/16 04:55 ALT 15 units/L (7-56) 07/27/16 04:55 Alkaline Phosphatase 63 units/L (35-129) 07/27/16 04:55 Total Protein 5.0 g/dL (6.3-8.2) L D 07/27/16 04:55 Albumin 2.6 g/dL (3.9-5) L 07/27/16 04:55 Albumin/Globulin Ratio 1.1 % 07/27/16 04:55 Lipase 41 units/L (13-60) 07/24/16 23:19 Urine Color Torri (Yellow) 07/25/16 09:10 Urine Turbidity Slightly-cloudy (Clear) 07/25/16 09:10 Urine pH 5.0 (5.0-7.0) 07/25/16 09:10 Ur Specific Morrison 1.025 (1.003-1.030) 07/25/16 09:10 Urine Protein 30 mg/dl mg/dL (Negative) 07/25/16 09:10 Urine Glucose (UA) Neg mg/dL (Negative) 07/25/16 09:10 Urine Ketones 20 mg/dL (Negative) 07/25/16 09:10 Urine Blood Neg (Negative) 07/25/16 09:10 Urine Nitrite Neg (Negative) 07/25/16 09:10 Urine Bilirubin Neg (Negative) 07/25/16 09:10 Urine Urobilinogen 2.0 mg/dL (<2.0) 07/25/16 09:10 Ur Leukocyte Esterase Neg (Negative) 07/25/16 09:10 Urine WBC (Auto) 10.0 /HPF (0.0-6.0) H 07/25/16 09:10 Urine RBC (Auto) 8.0 /HPF (0.0-6.0) 07/25/16 09:10 U Epithel Cells (Auto) 3.0 /HPF (0-13.0) 07/25/16 09:10 Urine Bacteria (Auto) 1+ /HPF (Negative) 07/25/16 09:10 Hyaline Casts 26 /LPF 07/25/16 09:10 Urine Mucus 3+ /HPF 07/25/16 09:10 Hypokalemia
--- NOTE | 2016-07-27 13:41 | XRay Report ---
Single view chest: History: Right PICC line placement. Findings: Cardiomegaly. Trachea is midline. Tip of NG tube in distal stomach. Tip of right PICC line in MID superior vena cava. No consolidation, pneumothorax or pleural effusion. Scarring right lower lobe. Impression: Tip of right PICC line in MID superior vena cava. No acute lung changes.
[2016-07-27] MEDS: LEVAQUIN 750MG/150ML 750 MG/150 ML BAG IV SCH (14:39)
[2016-07-27] MEDS: FLAGYL 500 MG/100 ML 500 MG/100 ML BAG IV SCH ×2 (17:14→22:02)
[2016-07-27] MEDS ORDERED: TPN ADULT 2,016 ML IV SCH (20:00)
[2016-07-28] MEDS: FLAGYL 500 MG/100 ML 500 MG/100 ML BAG IV SCH ×2 (06:28→15:35)
[2016-07-28] MEDS: HEPARIN SUB-Q SCH ×2 (06:29→15:40)
[2016-07-28 06:57] LABS: Basophils % (Auto) 0.1 % (0.0-1.8); Eosinophils % (Auto) 0.2 % (0.0-4.3); Hematocrit 31.2 % (35.5-45.6); Hemoglobin 10.3 gm/dl (11.8-15.2); Mean Corpuscular HGB Conc 33 % (32-34); Mean Corpuscular Hemoglobin 29 pg (28-32); Mean Corpuscular Volume 89 fl (84-94); Platelet Count 202 K/mm3 (140-440); Red Blood Count 3.51 M/mm3 (3.65-5.03); Red Cell Distribution Width 15.4 % (13.2-15.2)
[2016-07-28 07:30] LABS: Anion Gap 13 mmol/L; BUN/Creatinine Ratio 13.33; Blood Urea Nitrogen 12 mg/dL (9-20); Calcium 7.9 mg/dL (8.4-10.2); Carbon Dioxide 29 mmol/L (22-30); Glucose 121 mg/dL (75-100); Magnesium 2.1 mg/dL (1.7-2.3); Phosphorous 1.7 mg/dL (2.5-4.5); Sodium 135 mmol/L (137-145)
[2016-07-28 07:37] LABS: Potassium 2.8 mmol/L (3.6-5.0)
--- NOTE | 2016-07-28 07:43 | Event Note ---
Date: 07/28/16 POD 2 s/p desc colon resection, colostomy , VSS AF, K still low, on TPN ( replace K in TPN) Colostomy functional,dressing dry and intact, on Levaquin and flagyll, H and H stable, PIC line in place. Pain well controlled, path pending, OK for ice chips, DVT prophylaxis, PT consult, Mobilize, continue present care, fernandes and NG out.
--- NOTE | 2016-07-28 10:05 | Progress Note ---
Assessment and Plan Assessment and plan: Admitted for Intestinal obstruction likely from colonic mass POD 2 s/p expl lap left colectomy, end colostomy, Hartmans pouch for obstructive colon cancer, final path pending, CEA pending, hemodyn stable, low K -treated, on levaquin and flagyll, pain controlled with iv narcotics, need pic line , TPN, DVT prophylaxis, d/c NG, NPO except ice chips, d/c fernandes, PT consult , WOC nurse consult. - leukocytosis could be reactive - Surgery and GI consult appreciated - On IV fluids, electrolyte replacement - We'll follow closely Disposition -We will continue inpatient care History Interval history: Patient was seen and evaluated this morning, status post laparotomy day 2, no abdominal pain, didn't pass gas. Patient didn't have any new complaints. Hospitalist Physical - Physical exam Narrative exam: Not in cardiopulmonary distress. The patient appeared well nourished and normally developed. Vital signs as documented. Head exam is unremarkable. No scleral icterus . Neck is without jugular venous distension, thyromegaly, or carotid bruits. Lungs are clear to auscultation. Cardiac exam reveals regular rate and Rhythm. First and second heart sounds normal. No murmurs, rubs or gallops. Abdominal exam reveals midline surgical incision, with colostomy pouch. Extremities are nonedematous and both femoral and pedal pulses are normal. PARKING ATTENDANT: Alert and oriented 3. No focal weakness. - Constitutional Vitals: Temp Pulse Resp BP Pulse Ox 99.6 F 102 H 20 114/69 96 07/27/16 23:14 07/27/16 23:14 07/27/16 23:14 07/27/16 23:14 07/27/16 23:14 General appearance: Present: no acute distress, well-nourished Results - Labs CBC & Chem 7: 07/28/16 06:30 07/28/16 06:30 Labs: Laboratory Last Values WBC 12.0 K/mm3 (4.5-11.0) H 07/28/16 06:30 RBC 3.51 M/mm3 (3.65-5.03) L 07/28/16 06:30 Hgb 10.3 gm/dl (11.8-15.2) L 07/28/16 06:30 Hct 31.2 % (35.5-45.6) L 07/28/16 06:30 MCV 89 fl (84-94) 07/28/16 06:30 MCH 29 pg (28-32) 07/28/16 06:30 MCHC 33 % (32-34) 07/28/16 06:30 RDW 15.4 % (13.2-15.2) H 07/28/16 06:30 Plt Count 202 K/mm3 (140-440) 07/28/16 06:30 Lymph % (Auto) 7.3 % (13.4-35.0) L 07/28/16 06:30 Mcduffie % (Auto) 4.4 % (0.0-7.3) 07/28/16 06:30 Eos % (Auto) 0.2 % (0.0-4.3) 07/28/16 06:30 Baso % (Auto) 0.1 % (0.0-1.8) 07/28/16 06:30 Lymph # 0.9 K/mm3 (1.2-5.4) L 07/28/16 06:30 Mcduffie # 0.5 K/mm3 (0.0-0.8) 07/28/16 06:30 Eos # 0.0 K/mm3 (0.0-0.4) 07/28/16 06:30 Baso # 0.0 K/mm3 (0.0-0.1) 07/28/16 06:30 Seg Neutrophils % 88.0 % (40.0-70.0) H 07/28/16 06:30 Seg Neutrophils # 10.6 K/mm3 (1.8-7.7) H 07/28/16 06:30 Sodium 135 mmol/L (137-145) L 07/28/16 06:30 Potassium 2.8 mmol/L (3.6-5.0) L* 07/28/16 06:30 Chloride 96.0 mmol/L (98-107) L 07/28/16 06:30 Carbon Dioxide 29 mmol/L (22-30) 07/28/16 06:30 Anion Gap 13 mmol/L 07/28/16 06:30 BUN 12 mg/dL (9-20) 07/28/16 06:30 Creatinine 0.9 mg/dL (0.8-1.5) 07/28/16 06:30 Estimated GFR > 60 ml/min 07/28/16 06:30 BUN/Creatinine Ratio 13.33 % 07/28/16 06:30 Glucose 121 mg/dL (75-100) H 07/28/16 06:30 POC Glucose 135 (70-105) H 07/26/16 21:17 Calcium 7.9 mg/dL (8.4-10.2) L 07/28/16 06:30 Phosphorus 1.7 mg/dL (2.5-4.5) L D 07/28/16 06:30 Magnesium 2.1 mg/dL (1.7-2.3) 07/28/16 06:30 Total Bilirubin 1.4 mg/dL (0.1-1.2) H 07/27/16 04:55 AST 17 units/L (5-40) 07/27/16 04:55 ALT 15 units/L (7-56) 07/27/16 04:55 Alkaline Phosphatase 63 units/L (35-129) 07/27/16 04:55 Total Protein 5.0 g/dL (6.3-8.2) L D 07/27/16 04:55 Albumin 2.6 g/dL (3.9-5) L 07/27/16 04:55 Albumin/Globulin Ratio 1.1 % 07/27/16 04:55 Lipase 41 units/L (13-60) 07/24/16 23:19 Urine Color Torri (Yellow) 07/25/16 09:10 Urine Turbidity Slightly-cloudy (Clear) 07/25/16 09:10 Urine pH 5.0 (5.0-7.0) 07/25/16 09:10 Ur Specific [place] 1.025 (1.003-1.030) 07/25/16 09:10 Urine Protein 30 mg/dl mg/dL (Negative) 07/25/16 09:10 Urine Glucose (UA) Neg mg/dL (Negative) 07/25/16 09:10 Urine Ketones 20 mg/dL (Negative) 07/25/16 09:10 Urine Blood Neg (Negative) 07/25/16 09:10 Urine Nitrite Neg (Negative) 07/25/16 09:10 Urine Bilirubin Neg (Negative) 07/25/16 09:10 Urine Urobilinogen 2.0 mg/dL (<2.0) 07/25/16 09:10 Ur Leukocyte Esterase Neg (Negative) 07/25/16 09:10 Urine WBC (Auto) 10.0 /HPF (0.0-6.0) H 07/25/16 09:10 Urine RBC (Auto) 8.0 /HPF (0.0-6.0) 07/25/16 09:10 U Epithel Cells (Auto) 3.0 /HPF (0-13.0) 07/25/16 09:10 Urine Bacteria (Auto) 1+ /HPF (Negative) 07/25/16 09:10 Hyaline Casts 26 /LPF 07/25/16 09:10 Urine Mucus 3+ /HPF 07/25/16 09:10 Hypokalemia
[2016-07-28] MEDS: LEVAQUIN 750MG/150ML 750 MG/150 ML BAG IV SCH (10:10)
[2016-07-28] MEDS: KCL 10MEQ/100ML 10 MEQ/100 ML BAG IV SCH ×4 (12:53→16:47)
[2016-07-28] MEDS ORDERED: VASELINE LIP THERAPY TP ONE (16:04)
[2016-07-28] MEDS: MORPHINE IV PRN (18:41)
[2016-07-28] MEDS ORDERED: VASELINE LIP THERAPY TP PRN (19:19)
[2016-07-28] MEDS ORDERED: TPN ADULT 2,016 ML IV SCH (20:00)
[2016-07-29] MEDS: FLAGYL 500 MG/100 ML 500 MG/100 ML BAG IV SCH ×4 (00:03→22:00)
[2016-07-29] MEDS: HEPARIN SUB-Q SCH ×4 (00:04→21:30)
[2016-07-29] MEDS: MORPHINE IV PRN ×2 (00:56→10:28)
[2016-07-29 06:53] LABS: Basophils % (Auto) 0.1 % (0.0-1.8); Eosinophils % (Auto) 1.1 % (0.0-4.3); Hematocrit 30.5 % (35.5-45.6); Mean Corpuscular HGB Conc 33 % (32-34); Mean Corpuscular Hemoglobin 29 pg (28-32); Mean Corpuscular Volume 88 fl (84-94); Platelet Count 209 K/mm3 (140-440); Red Blood Count 3.46 M/mm3 (3.65-5.03); Red Cell Distribution Width 15.7 % (13.2-15.2); White Blood Count 11.2 K/mm3 (4.5-11.0)
[2016-07-29 07:14] LABS: Anion Gap 13 mmol/L; BUN/Creatinine Ratio 12.22; Blood Urea Nitrogen 11 mg/dL (9-20); Calcium 8.2 mg/dL (8.4-10.2); Carbon Dioxide 30 mmol/L (22-30); Chloride 97.1 mmol/L (98-107); Glucose 126 mg/dL (75-100); Magnesium 2.2 mg/dL (1.7-2.3); Phosphorous 1.8 mg/dL (2.5-4.5); Potassium 3.1 mmol/L (3.6-5.0); Sodium 137 mmol/L (137-145)
[2016-07-29] MEDS: LEVAQUIN 750MG/150ML 750 MG/150 ML BAG IV SCH (10:30)
[2016-07-29] MEDS: KCL 10MEQ/100ML 10 MEQ/100 ML BAG IV SCH ×2 (10:30→13:00)
--- NOTE | 2016-07-29 11:43 | Progress Note ---
Assessment and Plan Assessment and plan: Admitted for Intestinal obstruction likely from colonic mass POD 3 s/p expl lap left colectomy, end colostomy, Hartmans pouch for obstructive colon cancer, final path pending, hemodyn stable, on levaquin and flagyll, pain controlled with iv narcotics, need pic line , TPN, DVT prophylaxis , NPO except ice chips, PT consult, WOC nurse consult. - Potassium replacement - Continue his IV antibiotics - Surgery and GI consult appreciated - On IV fluids, electrolyte replacement - We'll follow closely DVT prophylaxis - On heparin Disposition -We will continue inpatient care History Interval history: Patient was seen and evaluated this morning, abdominal swelling is getting better, he passed gas. Patient had abdominal pain was controlled with pain medications. Hospitalist Physical - Physical exam Narrative exam: Not in cardiopulmonary distress. NG tube in place. The patient appeared well nourished and normally developed. Vital signs as documented. Head exam is unremarkable. No scleral icterus . Neck is without jugular venous distension, thyromegaly, or carotid bruits. Lungs are clear to auscultation. Cardiac exam reveals regular rate and Rhythm. First and second heart sounds normal. No murmurs, rubs or gallops. Abdominal exam reveals distended, soft non tender abdomen, colostomy bag with some fluid. Extremities are nonedematous and both femoral and pedal pulses are normal. CULINARY INSTRUCTOR: Alert and oriented 3. No focal weakness. - Constitutional Vitals: Temp Pulse Resp BP Pulse Ox 99.8 F H 91 H 18 126/72 100 07/29/16 07:00 07/29/16 07:00 07/29/16 07:00 07/29/16 07:00 07/29/16 07:00 General appearance: Present: no acute distress, well-nourished Results - Labs CBC & Chem 7: 07/29/16 06:30 07/29/16 06:30 Labs: Laboratory Last Values WBC 11.2 K/mm3 (4.5-11.0) H 07/29/16 06:30 RBC 3.46 M/mm3 (3.65-5.03) L 07/29/16 06:30 Hgb 10.0 gm/dl (11.8-15.2) L 07/29/16 06:30 Hct 30.5 % (35.5-45.6) L 07/29/16 06:30 MCV 88 fl (84-94) 07/29/16 06:30 MCH 29 pg (28-32) 07/29/16 06:30 MCHC 33 % (32-34) 07/29/16 06:30 RDW 15.7 % (13.2-15.2) H 07/29/16 06:30 Plt Count 209 K/mm3 (140-440) 07/29/16 06:30 Lymph % (Auto) 8.0 % (13.4-35.0) L 07/29/16 06:30 [place] % (Auto) 5.6 % (0.0-7.3) 07/29/16 06:30 Eos % (Auto) 1.1 % (0.0-4.3) 07/29/16 06:30 Baso % (Auto) 0.1 % (0.0-1.8) 07/29/16 06:30 Lymph # 0.9 K/mm3 (1.2-5.4) L 07/29/16 06:30 [place] # 0.6 K/mm3 (0.0-0.8) 07/29/16 06:30 Eos # 0.1 K/mm3 (0.0-0.4) 07/29/16 06:30 Baso # 0.0 K/mm3 (0.0-0.1) 07/29/16 06:30 Seg Neutrophils % 85.2 % (40.0-70.0) H 07/29/16 06:30 Seg Neutrophils # 9.5 K/mm3 (1.8-7.7) H 07/29/16 06:30 Sodium 137 mmol/L (137-145) 07/29/16 06:30 Potassium 3.1 mmol/L (3.6-5.0) L 07/29/16 06:30 Chloride 97.1 mmol/L (98-107) L 07/29/16 06:30 Carbon Dioxide 30 mmol/L (22-30) 07/29/16 06:30 Anion Gap 13 mmol/L 07/29/16 06:30 BUN 11 mg/dL (9-20) 07/29/16 06:30 Creatinine 0.9 mg/dL (0.8-1.5) 07/29/16 06:30 Estimated GFR > 60 ml/min 07/29/16 06:30 BUN/Creatinine Ratio 12.22 % 07/29/16 06:30 Glucose 126 mg/dL (75-100) H 07/29/16 06:30 POC Glucose 135 (70-105) H 07/26/16 21:17 Calcium 8.2 mg/dL (8.4-10.2) L 07/29/16 06:30 Phosphorus 1.8 mg/dL (2.5-4.5) L 07/29/16 06:30 Magnesium 2.2 mg/dL (1.7-2.3) 07/29/16 09:10 Total Bilirubin 1.4 mg/dL (0.1-1.2) H 07/27/16 04:55 AST 17 units/L (5-40) 07/27/16 04:55 ALT 15 units/L (7-56) 07/27/16 04:55 Alkaline Phosphatase 63 units/L (35-129) 07/27/16 04:55 Total Protein 5.0 g/dL (6.3-8.2) L D 07/27/16 04:55 Albumin 2.6 g/dL (3.9-5) L 07/27/16 04:55 Albumin/Globulin Ratio 1.1 % 07/27/16 04:55 Lipase 41 units/L (13-60) 07/24/16 23:19 Urine Color Torri (Yellow) 07/25/16 09:10 Urine Turbidity Slightly-cloudy (Clear) 07/25/16 09:10 Urine pH 5.0 (5.0-7.0) 07/25/16 09:10 Ur Specific [place] 1.025 (1.003-1.030) 07/25/16 09:10 Urine Protein 30 mg/dl mg/dL (Negative) 07/25/16 09:10 Urine Glucose (UA) Neg mg/dL (Negative) 07/25/16 09:10 Urine Ketones 20 mg/dL (Negative) 07/25/16 09:10 Urine Blood Neg (Negative) 07/25/16 09:10 Urine Nitrite Neg (Negative) 07/25/16 09:10 Urine Bilirubin Neg (Negative) 07/25/16 09:10 Urine Urobilinogen 2.0 mg/dL (<2.0) 07/25/16 09:10 Ur Leukocyte Esterase Neg (Negative) 07/25/16 09:10 Urine WBC (Auto) 10.0 /HPF (0.0-6.0) H 07/25/16 09:10 Urine RBC (Auto) 8.0 /HPF (0.0-6.0) 07/25/16 09:10 U Epithel Cells (Auto) 3.0 /HPF (0-13.0) 07/25/16 09:10 Urine Bacteria (Auto) 1+ /HPF (Negative) 07/25/16 09:10 Hyaline Casts 26 /LPF 07/25/16 09:10 Urine Mucus 3+ /HPF 07/25/16 09:10 Hypokalemia
--- NOTE | 2016-07-29 13:52 | Event Note ---
Date: 07/29/16 POD 3 s/p desc colon resection, colostomy, VSS AF, doing well, excellent colostomy output, on TPN, pain well controlled, will continue DVT prophylaxis, adv to clear liquid diet and see how he tolerlates it. Mobilize, check path. Abd dressing intact, will remove in am. Colostomy OK. Path pending.
[2016-07-29] MEDS ORDERED: TPN ADULT 2,016 ML IV SCH (20:00)
[2016-07-29] MEDS: TYLENOL PO PRN (23:19)
[2016-07-30] MEDS: KCL 10MEQ/100ML 10 MEQ/100 ML BAG IV SCH (02:31)
[2016-07-30 05:24] LABS: Basophils % (Auto) 0.1 % (0.0-1.8); Eosinophils % (Auto) 1.7 % (0.0-4.3); Hemoglobin 12.4 gm/dl (11.8-15.2); Mean Corpuscular HGB Conc 33 % (32-34); Mean Corpuscular Hemoglobin 29 pg (28-32); Mean Corpuscular Volume 88 fl (84-94); Platelet Count 203 K/mm3 (140-440); Red Blood Count 4.27 M/mm3 (3.65-5.03); Red Cell Distribution Width 16.2 % (13.2-15.2); White Blood Count 8.4 K/mm3 (4.5-11.0)
[2016-07-30 06:00] LABS: Anion Gap 17 mmol/L; BUN/Creatinine Ratio 13.75; Blood Urea Nitrogen 11 mg/dL (9-20); Calcium 8.4 mg/dL (8.4-10.2); Carbon Dioxide 27 mmol/L (22-30); Chloride 97.5 mmol/L (98-107); Glucose 132 mg/dL (75-100); Magnesium 2.2 mg/dL (1.7-2.3); Potassium 3.4 mmol/L (3.6-5.0); Sodium 138 mmol/L (137-145)
[2016-07-30] MEDS: HEPARIN SUB-Q SCH ×3 (06:00→22:58)
[2016-07-30] MEDS: FLAGYL 500 MG/100 ML 500 MG/100 ML BAG IV SCH ×3 (06:08→22:58)
[2016-07-30 06:52] LABS: Hematocrit 32.7 % (35.5-45.6)
[2016-07-30 07:59] LABS: Triglycerides 77 mg/dL (2-149)
--- NOTE | 2016-07-30 08:14 | Event Note ---
Date: 07/30/16 POD 4, some fever last pm , Afebrile now, VSS, abd dressing and gloria removed, wound OK, colostomy functional, WOC nurse and path pending. Mobilize and DVT prophylaxis, tolerating full liquids, needs ostomy instruction, check path. Continue antibiotics for now.
[2016-07-30] MEDS: LEVAQUIN 750MG/150ML 750 MG/150 ML BAG IV SCH (09:56)
[2016-07-30] MEDS: TYLENOL PO PRN (12:39)
--- NOTE | 2016-07-30 13:50 | Progress Note ---
Assessment and Plan Assessment and plan: Admitted for Intestinal obstruction likely from colonic mass POD 4 s/p expl lap left colectomy, end colostomy, Hartmans pouch for obstructive colon cancer, final path pending, hemodyn stable, on levaquin and flagyll, pain controlled with iv narcotics, need pic line , DVT prophylaxis, continue liquid diet, PT consult, WOC nurse consult. - Potassium replacement - Continue his IV antibiotics - Surgery and GI consult appreciated - On IV fluids, electrolyte replacement - We'll follow closely DVT prophylaxis - On heparin Disposition -We will continue inpatient care History Interval history: Patient was seen and evaluated this morning, abdominal swelling is getting better, he passed gas. Patient had abdominal pain was controlled with pain medications. Patient tolerated clear liquid diet. Hospitalist Physical - Physical exam Narrative exam: Not in cardiopulmonary distress. NG tube in place. The patient appeared well nourished and normally developed. Vital signs as documented. Head exam is unremarkable. No scleral icterus . Neck is without jugular venous distension, thyromegaly, or carotid bruits. Lungs are clear to auscultation. Cardiac exam reveals regular rate and Rhythm. First and second heart sounds normal. No murmurs, rubs or gallops. Abdominal exam reveals distended, soft non tender abdomen, colostomy bag with some fluid. Extremities are nonedematous and both femoral and pedal pulses are normal. MEDICAL IMAGING DIRECTOR: Alert and oriented 3. No focal weakness. - Constitutional Vitals: Temp Pulse Resp BP Pulse Ox 100.1 F H 91 H 20 117/80 99 07/30/16 12:00 07/30/16 08:00 07/30/16 10:00 07/30/16 08:00 07/30/16 08:00 General appearance: Present: no acute distress, well-nourished Results - Labs CBC & Chem 7: 07/30/16 04:40 07/30/16 04:40 Labs: Laboratory Last Values WBC 8.4 K/mm3 (4.5-11.0) 07/30/16 04:40 RBC 4.27 M/mm3 (3.65-5.03) 07/30/16 04:40 Hgb 12.4 gm/dl (11.8-15.2) 07/30/16 04:40 Hct 32.7 % (35.5-45.6) L 07/30/16 04:40 MCV 88 fl (84-94) 07/30/16 04:40 MCH 29 pg (28-32) 07/30/16 04:40 MCHC 33 % (32-34) 07/30/16 04:40 RDW 16.2 % (13.2-15.2) H 07/30/16 04:40 Plt Count 203 K/mm3 (140-440) 07/30/16 04:40 Lymph % (Auto) 11.6 % (13.4-35.0) L 07/30/16 04:40 [place] % (Auto) 9.0 % (0.0-7.3) H 07/30/16 04:40 Eos % (Auto) 1.7 % (0.0-4.3) 07/30/16 04:40 Baso % (Auto) 0.1 % (0.0-1.8) 07/30/16 04:40 Lymph # 1.0 K/mm3 (1.2-5.4) L 07/30/16 04:40 [place] # 0.8 K/mm3 (0.0-0.8) 07/30/16 04:40 Eos # 0.1 K/mm3 (0.0-0.4) 07/30/16 04:40 Baso # 0.0 K/mm3 (0.0-0.1) 07/30/16 04:40 Seg Neutrophils % 77.6 % (40.0-70.0) H 07/30/16 04:40 Seg Neutrophils # 6.5 K/mm3 (1.8-7.7) 07/30/16 04:40 Sodium 138 mmol/L (137-145) 07/30/16 04:40 Potassium 3.4 mmol/L (3.6-5.0) L 07/30/16 04:40 Chloride 97.5 mmol/L (98-107) L 07/30/16 04:40 Carbon Dioxide 27 mmol/L (22-30) 07/30/16 04:40 Anion Gap 17 mmol/L 07/30/16 04:40 BUN 11 mg/dL (9-20) 07/30/16 04:40 Creatinine 0.8 mg/dL (0.8-1.5) 07/30/16 04:40 Estimated GFR > 60 ml/min 07/30/16 04:40 BUN/Creatinine Ratio 13.75 % 07/30/16 04:40 Glucose 132 mg/dL (75-100) H 07/30/16 04:40 POC Glucose 134 (70-105) H 07/30/16 11:53 Calcium 8.4 mg/dL (8.4-10.2) 07/30/16 04:40 Phosphorus 3.0 mg/dL (2.5-4.5) D 07/30/16 04:40 Magnesium 2.2 mg/dL (1.7-2.3) 07/30/16 04:40 Total Bilirubin 1.4 mg/dL (0.1-1.2) H 07/27/16 04:55 AST 17 units/L (5-40) 07/27/16 04:55 ALT 15 units/L (7-56) 07/27/16 04:55 Alkaline Phosphatase 63 units/L (35-129) 07/27/16 04:55 Total Protein 5.0 g/dL (6.3-8.2) L D 07/27/16 04:55 Albumin 2.6 g/dL (3.9-5) L 07/27/16 04:55 Albumin/Globulin Ratio 1.1 % 07/27/16 04:55 Triglycerides 77 mg/dL (2-149) 07/30/16 04:40 Lipase 41 units/L (13-60) 07/24/16 23:19 Urine Color Torri (Yellow) 07/25/16 09:10 Urine Turbidity Slightly-cloudy (Clear) 07/25/16 09:10 Urine pH 5.0 (5.0-7.0) 07/25/16 09:10 Ur Specific [place] 1.025 (1.003-1.030) 07/25/16 09:10 Urine Protein 30 mg/dl mg/dL (Negative) 07/25/16 09:10 Urine Glucose (UA) Neg mg/dL (Negative) 07/25/16 09:10 Urine Ketones 20 mg/dL (Negative) 07/25/16 09:10 Urine Blood Neg (Negative) 07/25/16 09:10 Urine Nitrite Neg (Negative) 07/25/16 09:10 Urine Bilirubin Neg (Negative) 07/25/16 09:10 Urine Urobilinogen 2.0 mg/dL (<2.0) 07/25/16 09:10 Ur Leukocyte Esterase Neg (Negative) 07/25/16 09:10 Urine WBC (Auto) 10.0 /HPF (0.0-6.0) H 07/25/16 09:10 Urine RBC (Auto) 8.0 /HPF (0.0-6.0) 07/25/16 09:10 U Epithel Cells (Auto) 3.0 /HPF (0-13.0) 07/25/16 09:10 Urine Bacteria (Auto) 1+ /HPF (Negative) 07/25/16 09:10 Hyaline Casts 26 /LPF 07/25/16 09:10 Urine Mucus 3+ /HPF 07/25/16 09:10 Hypokalemia
[2016-07-30] MEDS: MORPHINE IV PRN (14:07)
[2016-07-30] MEDS ORDERED: TPN ADULT 2,016 ML IV SCH (20:00)
[2016-07-31] MEDS: HEPARIN SUB-Q SCH ×2 (06:21→14:07)
[2016-07-31] MEDS: FLAGYL 500 MG/100 ML 500 MG/100 ML BAG IV SCH (06:21)
[2016-07-31] MEDS: MORPHINE IV PRN ×2 (06:35→14:07)
[2016-07-31 07:27] LABS: Basophils % (Auto) 0.3 % (0.0-1.8); Eosinophils % (Auto) 1.8 % (0.0-4.3); Hematocrit 33.9 % (35.5-45.6); Mean Corpuscular HGB Conc 32 % (32-34); Mean Corpuscular Hemoglobin 29 pg (28-32); Mean Corpuscular Volume 88 fl (84-94); Platelet Count 274 K/mm3 (140-440); Red Blood Count 3.85 M/mm3 (3.65-5.03); Red Cell Distribution Width 16.2 % (13.2-15.2); White Blood Count 11.3 K/mm3 (4.5-11.0)
[2016-07-31 08:06] LABS: Anion Gap 19 mmol/L; Blood Urea Nitrogen 16 mg/dL (9-20); Calcium 8.8 mg/dL (8.4-10.2); Carbon Dioxide 25 mmol/L (22-30); Chloride 99.2 mmol/L (98-107); Glucose 120 mg/dL (75-100); Magnesium 2.1 mg/dL (1.7-2.3); Phosphorous 3.4 mg/dL (2.5-4.5); Sodium 139 mmol/L (137-145)
--- NOTE | 2016-07-31 08:08 | Progress Note ---
Assessment and Plan Assessment and plan: 65-year-old man with a past medical history of mild hypertension who presents after inability to pass a bowel movement. He states that he was seen in the hospital about 3 weeks ago for abdominal pain and was found to have a luminal narrowing in the colon suspicious for malignancy for which she was referred to Dr. Sudhakar Watts of gastroenterology. He was scheduled for outpatient colonoscopy, he drank all his bowel prep and still had no bowel movement he then went on to have some magnesium citrate and still was unable to pass any bowel movements. He then presented here to the ER shortly after presenting here he had a very small bowel movement and vomited 1. He is having generalized abdominal pain. Also notes x-ray done in the ER showed distended bowel loops consistent with partial small bowel obstruction. He denies fevers, denies chills, denies dysuria Intestinal obstruction from colonic mass POD 5 s/p expl lap left colectomy, end colostomy, Hartmans pouch for obstructive colon cancer, final path pending, on levaquin and flagyll, needs colostostomy instructions and home services set up Tolerating diet, DC PPN, surgery input appreciated Colonic Mass Needs fup with oncology, fup pathology from biopsy Hypokalemia continue to replace and recheck Dispo: home with services, tentative DC tomorrow am History Interval history: Patient is tolerating his diet, states abdominal pain is very well controlled and improving. Denies nausea or vomiting Hospitalist Physical - Physical exam Narrative exam: General: Patient appears well in no distress HEENT: MMM, EOMI cardiac: S1-S2 heard lungs: clear to auscultation, abdomen: soft, nontender, nondistended bowel sounds positive, colostomy bag noted extremities: no edema clubbing or cyanosis Skin: no rash or lesion Neuro: no focal deficit Psych: appropriate behavior and mood, cognition intact - Constitutional Vitals: Temp Pulse Resp BP Pulse Ox 99.5 F 98 H 18 120/84 99 07/31/16 07:25 07/31/16 07:25 07/31/16 07:25 07/31/16 07:25 07/31/16 07:25 General appearance: Present: no acute distress, well-nourished Results - Labs CBC & Chem 7: 07/31/16 06:30 07/31/16 06:30 Labs: Laboratory Last Values WBC 11.3 K/mm3 (4.5-11.0) H 07/31/16 06:30 RBC 3.85 M/mm3 (3.65-5.03) 07/31/16 06:30 Hgb 11.0 gm/dl (11.8-15.2) L 07/31/16 06:30 Hct 33.9 % (35.5-45.6) L 07/31/16 06:30 MCV 88 fl (84-94) 07/31/16 06:30 MCH 29 pg (28-32) 07/31/16 06:30 MCHC 32 % (32-34) 07/31/16 06:30 RDW 16.2 % (13.2-15.2) H 07/31/16 06:30 Plt Count 274 K/mm3 (140-440) 07/31/16 06:30 Lymph % (Auto) 12.8 % (13.4-35.0) L 07/31/16 06:30 [place] % (Auto) 12.2 % (0.0-7.3) H 07/31/16 06:30 Eos % (Auto) 1.8 % (0.0-4.3) 07/31/16 06:30 Baso % (Auto) 0.3 % (0.0-1.8) 07/31/16 06:30 Lymph # 1.4 K/mm3 (1.2-5.4) 07/31/16 06:30 [place] # 1.4 K/mm3 (0.0-0.8) H 07/31/16 06:30 Eos # 0.2 K/mm3 (0.0-0.4) 07/31/16 06:30 Baso # 0.0 K/mm3 (0.0-0.1) 07/31/16 06:30 Seg Neutrophils % 72.9 % (40.0-70.0) H 07/31/16 06:30 Seg Neutrophils # 8.2 K/mm3 (1.8-7.7) H 07/31/16 06:30 Sodium 138 mmol/L (137-145) 07/30/16 04:40 Potassium 3.4 mmol/L (3.6-5.0) L 07/30/16 04:40 Chloride 97.5 mmol/L (98-107) L 07/30/16 04:40 Carbon Dioxide 27 mmol/L (22-30) 07/30/16 04:40 Anion Gap 17 mmol/L 07/30/16 04:40 BUN 11 mg/dL (9-20) 07/30/16 04:40 Creatinine 0.8 mg/dL (0.8-1.5) 07/30/16 04:40 Estimated GFR > 60 ml/min 07/30/16 04:40 BUN/Creatinine Ratio 13.75 % 07/30/16 04:40 Glucose 132 mg/dL (75-100) H 07/30/16 04:40 POC Glucose 137 (70-105) H 07/31/16 06:25 Calcium 8.4 mg/dL (8.4-10.2) 07/30/16 04:40 Phosphorus 3.0 mg/dL (2.5-4.5) D 07/30/16 04:40 Magnesium 2.2 mg/dL (1.7-2.3) 07/30/16 04:40 Total Bilirubin 1.4 mg/dL (0.1-1.2) H 07/27/16 04:55 AST 17 units/L (5-40) 07/27/16 04:55 ALT 15 units/L (7-56) 07/27/16 04:55 Alkaline Phosphatase 63 units/L (35-129) 07/27/16 04:55 Total Protein 5.0 g/dL (6.3-8.2) L D 07/27/16 04:55 Albumin 2.6 g/dL (3.9-5) L 07/27/16 04:55 Albumin/Globulin Ratio 1.1 % 07/27/16 04:55 Triglycerides 77 mg/dL (2-149) 07/30/16 04:40 Lipase 41 units/L (13-60) 07/24/16 23:19 Urine Color [place] (Yellow) 07/25/16 09:10 Urine Turbidity Slightly-cloudy (Clear) 07/25/16 09:10 Urine pH 5.0 (5.0-7.0) 07/25/16 09:10 Ur Specific [place] 1.025 (1.003-1.030) 07/25/16 09:10 Urine Protein 30 mg/dl mg/dL (Negative) 07/25/16 09:10 Urine Glucose (UA) Neg mg/dL (Negative) 07/25/16 09:10 Urine Ketones 20 mg/dL (Negative) 07/25/16 09:10 Urine Blood Neg (Negative) 07/25/16 09:10 Urine Nitrite Neg (Negative) 07/25/16 09:10 Urine Bilirubin Neg (Negative) 07/25/16 09:10 Urine Urobilinogen 2.0 mg/dL (<2.0) 07/25/16 09:10 Ur Leukocyte Esterase Neg (Negative) 07/25/16 09:10 Urine WBC (Auto) 10.0 /HPF (0.0-6.0) H 07/25/16 09:10 Urine RBC (Auto) 8.0 /HPF (0.0-6.0) 07/25/16 09:10 U Epithel Cells (Auto) 3.0 /HPF (0-13.0) 07/25/16 09:10 Urine Bacteria (Auto) 1+ /HPF (Negative) 07/25/16 09:10 Hyaline Casts 26 /LPF 07/25/16 09:10 Urine Mucus 3+ /HPF 07/25/16 09:10
[2016-07-31] MEDS: LEVAQUIN 750MG/150ML 750 MG/150 ML BAG IV SCH (10:50)
--- NOTE | 2016-07-31 11:56 | Event Note ---
Date: 07/31/16 POD 5 s/p left colon resection, stage I colon cancer, doing well, d/c antibiotics, po pain meds, DVT prophylaxis, mobilize, home soon. advance to regular diet. wound OK, WOC nurse on board, d/c TPN, reg diet.Stop antibiotics.
[2016-07-31] MEDS ORDERED: PERCOCET 5/325 PO PRN (12:00)
--- NOTE | 2016-07-31 16:17 | Hem/Onc Consultation ---
History of Present Illness - Reason for Consult Consult date: 07/31/16 Requesting physician: LIN REA - History of Present Illness Patient with mild HTN admitted with bowel obstruction. Had ex lap and partial colectomy. prelim path c/w cancer. Feels better overall. No complains. Past History Past Medical History: hypertension Past Surgical History: hernia repair (umbilical) Social history: no significant social history Family history: no significant family history Medications and Allergies Allergies Allergy/AdvReac Type Severity Reaction Status Date / Time No Known Allergies Allergy Unverified 06/28/16 14:49 Home Medications Medication Instructions Recorded Confirmed Last Taken Type amLODIPine [Norvasc] 5 mg PO DAILY #30 tab 06/28/16 07/25/16 07/24/16 Rx Active Meds: Active Medications Acetaminophen (Tylenol) 650 mg PO Q4H PRN PRN Reason: Fever Last Admin: 07/30/16 12:39 Dose: 650 mg Heparin Sodium (Porcine) (Heparin) 5,000 unit SUB-Q Q8HR FRANCISCO Last Admin: 07/31/16 14:07 Dose: 5,000 unit Hydralazine HCl (Apresoline) 10 mg IV Q4HR PRN PRN Reason: BP >160/100 Hydrophilic Ointment (Vaseline Lip Therapy) 1 applic TP DIRECT PRN PRN Reason: Dry Lips Morphine Sulfate (Morphine) 2 mg IV Q4H PRN PRN Reason: Pain, Moderate (4-6) Last Admin: 07/31/16 14:07 Dose: 2 mg Morphine Sulfate (Morphine) 4 mg IV Q4H PRN PRN Reason: Pain , Severe (7-10) Ondansetron HCl (Zofran) 4 mg IV Q8H PRN PRN Reason: N/V unrelieved by Reglan Last Admin: 07/31/16 14:06 Dose: 4 mg Oxycodone/Acetaminophen (Percocet 5/325) 1 tab PO Q4H PRN PRN Reason: Pain, Moderate (4-6) Review of Systems All systems: negative (post op abdominal minimal pain) Exam - Constitutional Vitals: Last Vital Signs Temp 99.2 F 07/31/16 15:30 Pulse 102 H 07/31/16 15:30 Resp 18 07/31/16 15:30 BP 112/76 07/31/16 15:30 Pulse Ox 99 04/25/17 07:25 Pain Intensity (0-10): 2/10 General appearance: no acute distress Performance status: 0-fully active - EENT Eyes: PERRL ENT: hearing intact Lymph node exam: bilateral cervical - Neck Neck: supple, normal ROM - Respiratory Respiratory effort: Positive: normal Respiratory: bilateral: CTA - Cardiovascular Rhythm: regular Heart Sounds: Present: S1 & S2 Extremities: no ischemia - Gastrointestinal General gastrointestinal: Present: deferred - Musculoskeletal Musculoskeletal: strength equal bilaterally - Neurologic Neurologic: CNII-XII intact - Psychiatric Psychiatric: appropriate mood/affect Results - Labs lab Results: Laboratory Results - last 24 hr 07/30/16 07/31/16 07/31/16 18:52 00:01 06:25 WBC RBC Hgb Hct MCV MCH MCHC RDW Plt Count Lymph % (Auto) [place] % (Auto) Eos % (Auto) Baso % (Auto) Lymph # [place] # Eos # Baso # Seg Neutrophils % Seg Neutrophils # Sodium Potassium Chloride Carbon Dioxide Anion Gap BUN Creatinine Estimated GFR BUN/Creatinine Ratio Glucose POC Glucose 108 H 133 H 137 H Calcium Phosphorus Magnesium 07/31/16 07/31/16 06:30 06:30 WBC 11.3 H RBC 3.85 Hgb 11.0 L Hct 33.9 L MCV 88 MCH 29 MCHC 32 RDW 16.2 H Plt Count 274 Lymph % (Auto) 12.8 L [place] % (Auto) 12.2 H Eos % (Auto) 1.8 Baso % (Auto) 0.3 Lymph # 1.4 [place] # 1.4 H Eos # 0.2 Baso # 0.0 Seg Neutrophils % 72.9 H Seg Neutrophils # 8.2 H Sodium 139 Potassium 4.0 Chloride 99.2 Carbon Dioxide 25 Anion Gap 19 BUN 16 Creatinine 0.8 Estimated GFR > 60 BUN/Creatinine Ratio 20.00 Glucose 120 H POC Glucose Calcium 8.8 Phosphorus 3.4 Magnesium 2.1 - Imaging and cardiology CT scan - abdomen: report reviewed, image reviewed Assessment and Plan - Patient Problems (1) Bowel obstruction Current Visit: Yes Status: Acute Qualifiers: Intestinal obstruction type: other intestinal obstruction Qualified Code(s) : K56.69 - Other intestinal obstruction Plan to address problem: Most consistent with colon cancer. Await final pathology. Needs outpatient follow up. Appointment for after 1 week given. He agrees.
[2016-08-01] MEDS: MORPHINE IV PRN (03:25)
[2016-08-01] MEDS: HEPARIN SUB-Q SCH ×3 (06:42→14:39)
--- NOTE | 2016-08-01 07:24 | Event Note ---
Date: 08/01/16 POD 5, VSS AF off antibiotics, wound OK, instructed on ostomy care, OK for discharge from General surgical standpoint with follow up in my office in one week. I will remove jamee in my office. F/U outpatient with Oncology.
--- NOTE | 2016-08-01 08:40 | Discharge Summary ---
Providers - Providers Date of Admission: 07/25/16 10:46 Attending physician: LONDON KOWALSKI MD 07/27/16 07:52 Consult to PICC Line RN [CONS] Urgent Reason For Exam: start TPN Type Line:: PICC 07/27/16 07:53 Consult to Dietitian/Nutrition [CONS] Routine Physician Instructions: Reason For Exam: Reason for Consult: TPN 07/27/16 07:57 Physical Therapy Evaluation and Treat [CONS] Routine Comment: Reason For Exam: mobilization post op 07/28/16 19:18 Consult to Wound/ET Nurse [CONS] Routine Reason For Exam: new colostomy 07/31/16 08:09 Consult to Physician [CONS] Routine Consulting Provider: CORNELL MOTLEY Reason For Exam: colonic mass Place consult to:: onco Notified:: office Phone number called:: [phone] Was contact made?: Yes If yes, spoke with:: beth Time called:: 13:41 Primary care physician: CYCLING INSTRUCTOR Hospitalization Condition: Stable Hospital course: 65-year-old man with a past medical history of mild hypertension who presents after inability to pass a bowel movement. He states that he was seen in the hospital about 3 weeks ago for abdominal pain and was found to have a luminal narrowing in the colon suspicious for malignancy for which she was referred to Dr. Sudhakar Watts of gastroenterology. He was scheduled for outpatient colonoscopy, he drank all his bowel prep and still had no bowel movement he then went on to have some magnesium citrate and still was unable to pass any bowel movements. He then presented here to the ER shortly after presenting here he had a very small bowel movement and vomited 1. He is having generalized abdominal pain. Also notes x-ray done in the ER showed distended bowel loops consistent with partial small bowel obstruction. For that matter to the hospital for partial small bowel obstruction due to obstructive colonic mass. Timentin to have expiratory laparotomy, end colostomy and Owusu's pouch. 4 obstructive colon cancer, final pathology still pending. He received empiric antibiotics for suspected intra-abdominal infection. He also had hypokalemia which was replaced. He was set up with home health services prior to discharge home Discharge diagnoses Intestinal obstruction from colonic mass Colonic Mass Has been set up with oncology for follow-up and treatment as an outpatient Hypokalemia Disposition: DC/TX HOME UNDER HOME HEALTH Time spent for discharge: 35 minutes Core Measure Documentation - Palliative Care Palliative Care/ Comfort Measures: Not Applicable - Core Measures Any of the following diagnoses?: none Exam - Physical Exam Narrative exam: General: Patient appears well in no distress HEENT: MMM, EOMI cardiac: S1-S2 heard lungs: clear to auscultation, abdomen: soft, nontender, nondistended bowel sounds positive, colostomy bag noted extremities: no edema clubbing or cyanosis Skin: no rash or lesion Neuro: no focal deficit Psych: appropriate behavior and mood, cognition intact - Constitutional Vitals: Temp Pulse Resp BP Pulse Ox 98.6 F 103 H 20 114/81 99 07/31/16 21:08 07/31/16 21:08 08/01/16 03:55 07/31/16 21:08 07/31/16 21:08 Plan Follow up with: PRIMARY CARE, [Primary Care Provider] - 3-5 Days Prescriptions: oxyCODONE /ACETAMINOPHEN [Percocet 5/325 mg] 1 tab PO Q4H PRN #30 tablet PRN Reason: Pain, Moderate (4-6)
--- NOTE | 2016-08-01 14:31 | Hem/Onc Progress Note ---
Assessment and Plan - Patient Problems (1) Bowel obstruction Current Visit: Yes Status: Acute Qualifiers: Intestinal obstruction type: other intestinal obstruction Qualified Code(s) : K56.69 - Other intestinal obstruction Plan to address problem: Has colon cancer, will neeed discussion on adjuvant chemotherapy. He understands and states he will follow up. Subjective Date of service: 08/01/16 Interval history: He feels well. No complains Objective - Constitutional Vitals: Last Vital Signs Temp 99.2 F 08/01/16 08:00 Pulse 93 H 08/01/16 08:00 Resp 18 08/01/16 08:00 BP 116/72 08/01/16 08:00 Pulse Ox 98 08/01/16 08:00 Pain Intensity (0-10): denies any pain General appearance: no acute distress - Neck Neck: supple - Respiratory Respiratory effort: Positive: normal - Labs Lab Results: Laboratory Results - last 24 hr 07/31/16 07/31/16 07/31/16 10:59 16:32 22:09 POC Glucose 126 H 97 90
[2016-08-01 16:00] VITALS: BP 121/69
== END 2016-08-01 19:00 | disposition home health service (06) | DRG 853 ==
LOC: ED 22:30 → 3A 07-25 10:46 → 2B-SURG 07-26 15:45
PROVIDERS: ADMIT Internal Medicine; ATTEND Internal Medicine
PROC: 0DTG0ZZ Resection of Left Large Intestine, Open Approach (ICD-10-PCS; principal; 2016-07-26)
PROC: 0D1L0Z4 Bypass Transverse Colon to Cutaneous, Open Approach (ICD-10-PCS; 2016-07-26)
PROC: 02HV33Z Insertion of Infusion Device into Superior Vena Cava, Percutaneous Approach (ICD-10-PCS; 2016-07-27)
DX: A41.9 Sepsis, unspecified organism (principal); E43 Unspecified severe protein-calorie malnutrition; C18.6 Malignant neoplasm of descending colon; N39.0 Urinary tract infection, site not specified; I10 Essential (primary) hypertension; Z86.73 Personal history of transient ischemic attack (TIA), and cerebral infarction without residual deficits; K21.9 Gastro-esophageal reflux disease without esophagitis
CPT/HCPCS: 36415; 71010; 74020; 80048; 80053; 81001; 82378; 82962; 83690; 83735; 84100; 84132; 84478; 85025; 87040; 87086; 88309; 88331; 88341; 88342; 96360; J0330; J0690; J1100; J1170; J1644; J1885; J1956; J2250; J2270; J2405; J2543; J2704; J2710; J3010; J3480; J7030; J7120

== ENCOUNTER 2016-08-17 09:55 | Outpatient (CLI) | payer MEDICARE | END 2016-08-17 09:56 | disposition home or self-care (01) | LOC: WOUND 09:55 | PROVIDERS: ATTEND Surgery | DX: T81.89XD Other complications of procedures, not elsewhere classified, subsequent encounter (principal); Y83.8 Other surgical procedures as the cause of abnormal reaction of the patient, or of later complication, without mention of misadventure at the time of the procedure | CPT/HCPCS: 99213; G0463 ==

== ENCOUNTER 2016-09-20 11:03 | Outpatient (CLI) | payer MEDICARE ==
--- NOTE | 2016-09-24 08:50 | PET Report ---
PET/CT:09/20/16 11:03:00 CLINICAL: Malignant neoplasm transverse colon. RADIOPHARMACEUTICAL: 11.975mCi F18-FDG. COMPARISON: CT abdomen and pelvis with contrast 06/28/16 TECHNIQUE- Following intravenous injection of F-18 FDG and an approximately 60 minute uptake period, CT and PET images from the mid skull to the upper thighs were acquired with the patient in the fasted state. No contrast was administered. The CT protocol used for this PET CT study is designed for attenuation correction and anatomic localization of PET abnormalities. This bath steward/stewardess CT is not desired to produce and cannot replace, hjyoy-jm-axl-art diagnostic CT scans with specific imaging protocols for different body parts and indications. Plasma glucose at the time of this test: 103g/dl. The standardized uptake values (SUV) are normalized to patient body weight and indicate the highest activity concentration (SUV max) in a given disease site. FINDINGS: Brain--Physiologic FDG uptake in the visualized regions of the brain. Neck--Physiologic FDG uptake . Chest--Physiologic FDG uptake in mediastinal blood pool and myocardium. Lungs--No abnormal uptake. No pulmonary nodule or mass. Pleura/pericardium--No abnormal uptake. Thoracic nodes--No abnormal uptake. Hepatobiliary--No abnormal uptake. Liver background SUV mean, as a reference for comparing FDG studies, is 3.9 . Several benign hepatic cysts. No liver mass. Spleen--No abnormal uptake. Pancreas--No abnormal uptake. Adrenal Glands--No abnormal uptake. Kidneys/Ureters/Bladder--No abnormal uptake. Abdominopelvic Nodes--No abnormal uptake. Bowel/Peritoneum/Mesentery--No abnormal uptake. The previously described colon mass has been surgically resected. Left lower quadrant colostomy. Pelvic organs--No abnormal uptake. Bones/Soft Tissues--No abnormal uptake. IMPRESSION- 1. Negative study with no evidence of metastasis.2. Benign hepatic cysts. 3. Status post partial colectomy.
== END 2016-09-20 11:04 | disposition home or self-care (01) ==
LOC: PET 11:03
PROVIDERS: ATTEND Internal Medicine Hematology
DX: C18.4 Malignant neoplasm of transverse colon (principal); I10 Essential (primary) hypertension
CPT/HCPCS: 78815; 82962; A9552

== ENCOUNTER 2017-04-23 08:30 | Outpatient (CLI) | payer MEDICARE ==
[2017-04-23 09:22] LABS: Blood Urea Nitrogen 13 mg/dL (9-20)
--- NOTE | 2017-04-24 08:20 | Cat Scan Report ---
CT CHEST, ABDOMEN AND PELVIS WITH CONTRAST INDICATION: Malignant neoplasm of transverse colon. COMPARISON: 06/28/[address] and September [address] findings. FINDINGS: Chest, abdomen and pelvis CT performed following oral contrast and intravenous administration of 100 cc of Omnipaque 300. CHEST: Unremarkable heart and great vessels with few aortic arch atherosclerotic calcifications. No effusion or size significant adenopathy, though subtle bilateral hilar nonspecific lymphoid prominence may be present as on axial image 131, series 2 on the right and 115 on the left. Patent central airway. Unremarkable thyroid. Approximately 5 mm right lower lobe pleural-based noncalcified nodular density, axial image 170, series 2 and in the left lower lobe, axial image 147 again noted. Multiple other similar appearance as in the right middle lobe, axial image 150, along the fissure as on axial image 145 as also in the peripheral left upper lobe on axial image 60, series 2 also seen. Minimal bibasilar atelectasis or scarring posteriorly. Nonspecific mild distal esophageal wall prominence/thickening, not excluded for gastroesophageal reflux and/or hiatal hernia, amongst others. ABDOMEN: Interval resolution of minimal perihepatic ascites. Multiple hepatic hypodensities, some sub-cm and indeterminate while the largest 2.8 x 2.5 cm lobulated simple cyst superiorly towards the dome as on axial image 315, series 2, amongst others, again noted. No new focal suspicious lesions or biliary dilatation. Patent veins. Gallbladder, pancreas, adrenals, aorta, IVC and kidneys remain within normal limits. No size significant adenopathy. Opacified GI tract nonobstructive with partial/left hemicolectomy and left mid to lower quadrant colostomy with small fat-containing parastomal hernia again noted in the left lower quadrant as on axial image 477, series 2, amongst others. A midline ventral incision again noted with some subjacent benign calcifications superiorly as on axial image 352, amongst others. Minimal mid to lower abdominal mesenteric fat stranding now remains as on axial image 463, amongst others. PELVIS: Cecum again low-lying within the right hemipelvis. A long Mague's pouch with its proximal stapled end noted in the left mid abdomen about the level of the left lower renal pole, axial image 422. Interval resolution of minimal pelvic ascites. Stable prominent/enlarged seminal vesicles and prostate that may be correlated for clinically and with PSA. Opacified urinary bladder suboptimally distended with exaggerated wall thickness, though grossly unremarkable. No new significant adenopathy with stable bilateral external iliac lymph nodes measuring up to 1.3 cm on the left, axial image 563. Small, approximately 1 cm diameter fat-containing left inguinal hernia. Mild multilevel spinal degenerative changes as spurring and lower lumbar facet arthropathy. CONCLUSION: 1. No CT evidence of abdominal or pelvic metastases in this patient with partial/left hemicolectomy for descending colon carcinoma, as detailed above. Multiple hepatic hypodensities/cysts and prominent/enlarged prostate and seminal vesicles again noted, as described. Interval resolution of minimal ascites. 2. No acute chest process with findings, as above. Few nonspecific, sub-centimeter pleural-based nodular densities, though stable in both lower lobes since June 2016 and may likely be postinflammatory. Direct comparison with more remote imaging, if available, would be helpful to assure stability and avoid further followup. Otherwise, CT followup in approximately 6-12 months towards two-year surveillance may be performed, as appropriate. Thank you for the opportunity to participate in this patient's care.
== END 2017-04-23 08:31 | disposition home or self-care (01) ==
LOC: CT 08:30
PROVIDERS: ATTEND Internal Medicine Hematology
DX: C18.4 Malignant neoplasm of transverse colon (principal); K43.5 Parastomal hernia without obstruction or gangrene; K40.90 Unilateral inguinal hernia, without obstruction or gangrene, not specified as recurrent; N40.0 Benign prostatic hyperplasia without lower urinary tract symptoms; K82.8 Other specified diseases of gallbladder; K76.89 Other specified diseases of liver; I70.0 Atherosclerosis of aorta; M47.896 Other spondylosis, lumbar region; M12.88 Other specific arthropathies, not elsewhere classified, other specified site; Z90.49 Acquired absence of other specified parts of digestive tract; Z93.3 Colostomy status
CPT/HCPCS: 36415; 71260; 74177; 82565; 84520; Q9967

== ENCOUNTER 2018-09-14 08:52 | Emergency (ER) | payer MEDICARE ==
[2018-09-14 09:00] VITALS: BP 174/96
[2018-09-14] MEDS ORDERED: COLACE PO ONE (09:09)
--- NOTE | 2018-09-14 09:13 | Emergency Department Report ---
ED ENT HPI - General Chief complaint: Earache Stated complaint: EAR ACHE Time Seen by Provider: 09/14/18 09:09 Source: patient Mode of arrival: Ambulatory Limitations: No Limitations - History of Present Illness Initial comments: This is a 67-year-old male that presents to the ER with right ear pain for 2 days. Patient states he is feeling pressure as if he was on an airplane. He denies change in hearing or discharge. MD complaint: ear pain Onset/Timin -: days(s) Location: R ear Severity: mild Severity scale (0 -10): 2 Quality: constant, other (pressure) Consistency: constant, intermittent Worsens with: none Associated Symptoms: denies: toothache, tinnitus, hearing loss, discharge from ear, rhinorrhea - Related Data Previous Rx's Medication Instructions Recorded Last Taken Type oxyCODONE /ACETAMINOPHEN [Percocet 1 tab PO Q4H PRN #30 tablet 08/01/16 Unknown Rx 5/325 mg] Carbamide Peroxide 6.5% [Ear Wax 0 drops OT DAILY #1 bottle 09/14/18 Unknown Rx Drops] Neomycin/Polymyxin B Sulf/Hc 4 drop AU TID #1 bottle 09/14/18 Unknown Rx [NEOMY/POLY/HC 3.5mg/47308uwjja/10mg OTIC] Allergies Allergy/AdvReac Type Severity Reaction Status Date / Time No Known Allergies Allergy Unverified 06/28/16 14:49 ED Dental HPI - General Chief complaint: Earache Stated complaint: EAR ACHE Time Seen by Provider: 09/14/18 09:09 Source: patient Mode of arrival: Ambulatory Limitations: No Limitations - Related Data Previous Rx's Medication Instructions Recorded Last Taken Type oxyCODONE /ACETAMINOPHEN [Percocet 1 tab PO Q4H PRN #30 tablet 08/01/16 Unknown Rx 5/325 mg] Carbamide Peroxide 6.5% [Ear Wax 0 drops OT DAILY #1 bottle 09/14/18 Unknown Rx Drops] Neomycin/Polymyxin B Sulf/Hc 4 drop AU TID #1 bottle 09/14/18 Unknown Rx [NEOMY/POLY/HC 3.5mg/46801phtfg/10mg OTIC] Allergies Allergy/AdvReac Type Severity Reaction Status Date / Time No Known Allergies Allergy Unverified 06/28/16 14:49 ED Review of Systems ROS: Stated complaint: EAR ACHE Other details as noted in HPI Constitutional: denies: chills, fever ENT: ear pain. denies: throat pain Respiratory: denies: cough, shortness of breath, wheezing Cardiovascular: denies: chest pain, palpitations Gastrointestinal: denies: abdominal pain, nausea, diarrhea Skin: denies: rash, lesions Neurological: denies: headache, weakness, paresthesias Psychiatric: denies: anxiety, depression ED Past Medical Hx - Past Medical History Previous Medical History?: Yes Hx Hypertension: Yes Hx Heart Attack/AMI: No Hx Congestive Heart Failure: No Hx Deep Vein Thrombosis: No Hx Arthritis: Yes Hx HIV: No Additional medical history: Recent ABD Pain - Surgical History Past Surgical History?: Yes Hx Pacemaker: No Hx Internal Defibrillator: No Additional Surgical History: umbilical hernia - Social History Smoking Status: Never Smoker Substance Use Type: Alcohol, Prescribed - Medications Home Medications: Home Medications Medication Instructions Recorded Confirmed Last Taken Type oxyCODONE /ACETAMINOPHEN [Percocet 1 tab PO Q4H PRN #30 tablet 08/01/16 Unknown Rx 5/325 mg] Carbamide Peroxide 6.5% [Ear Wax 0 drops OT DAILY #1 bottle 09/14/18 Unknown Rx Drops] Neomycin/Polymyxin B Sulf/Hc 4 drop AU TID #1 bottle 09/14/18 Unknown Rx [NEOMY/POLY/HC 3.5mg/73543ilnba/10mg OTIC] ED Physical Exam - General Limitations: No Limitations General appearance: alert, in no apparent distress - ENT ENT exam: Present: mucous membranes moist. Absent: TM's normal bilaterally, normal external ear exam (cerumen impaction on right) - Respiratory Respiratory exam: Present: normal lung sounds bilaterally. Absent: respiratory distress - Cardiovascular Cardiovascular Exam: Present: regular rate, normal rhythm. Absent: systolic murmur, diastolic murmur, rubs, gallop - Neurological Exam Neurological exam: Present: alert, oriented X3 - Psychiatric Psychiatric exam: Present: normal affect, normal mood - Skin Skin exam: Present: warm, dry, intact, normal color. Absent: rash ED Course Vital Signs 09/14/18 08:56 Temperature 98.6 F Pulse Rate 99 H Respiratory 18 Rate Blood Pressure 174/96 O2 Sat by Pulse 98 Oximetry ED Medical Decision Making - Medical Decision Making Patient is stable and was examined by me. Vitals normal. There is cerumen impaction right ear nonfocal exam. Right ear irrigated with liquid Colace and normal saline. On reevaluation of her right ear there is erythema to ear canal. Start neomycin and debrox otic drops. Discussed plan with patient and he agreed with plan. Discharged home in stable condition. Follow up with PCP in 24-72 hours. Critical care attestation.: If time is entered above; I have spent that time in minutes in the direct care of this critically ill patient, excluding procedure time. ED Disposition Clinical Impression: Otalgia of right ear, Impacted cerumen of right ear Otitis externa Qualifiers: Otitis externa type: diffuse Chronicity: acute Laterality: right Qualified Code(s): H60.311 - Diffuse otitis externa, right ear Disposition: TO HOME OR SELFCARE Is pt being admited?: No Does the pt Need Aspirin: No Condition: Stable Instructions: Otitis Externa (ED), Earache (ED) Additional Instructions: Give Tylenol or ibuprofen for pain every 6-8 hours. Take antibiotics as prescribed to avoid recurrence of the ear infection. Avoid high altitudes, may worsen the pain during ear infection. If symptoms do not improve within 2 to 3 days, then follow up with Telephone Service Representative. Prescriptions: Carbamide Peroxide 6.5% [Ear Wax Drops] 0 drops OT DAILY #1 bottle Neomycin/Polymyxin B Sulf/Hc [NEOMY/POLY/HC 3.5mg/18739ltotv/10mg OTIC] 4 drop AU TID #1 bottle Referrals: ROOPA SILVA MD [Primary Care Provider] - 3-5 Days Time of Disposition: 10:33
== END 2018-09-14 10:38 | disposition home or self-care (01) ==
LOC: ED 08:52
DX: H60.311 Diffuse otitis externa, right ear (principal); H61.21 Impacted cerumen, right ear; I10 Essential (primary) hypertension; M19.90 Unspecified osteoarthritis, unspecified site
CPT/HCPCS: 99282

== ENCOUNTER 2020-12-05 06:05 | Emergency (ER) | payer MEDICARE ==
[2020-12-05] MEDS ORDERED: SODIUM CHLORIDE 0.9% 500 ML 500 ML IV ONE (07:49)
--- NOTE | 2020-12-05 07:50 | Emergency Department Report ---
- General Chief Complaint: Upper Respiratory Infection Stated Complaint: CONGESTED Time Seen by Provider: 12/05/20 07:42 Source: patient Mode of arrival: Ambulatory Limitations: No Limitations - History of Present Illness Initial Comments: 69-year-old male with a past medical history of hypertension presents to the ER today with complaints of cough. Patient states that he started feeling bad after returning from a trip [facility] days ago. Patient states that he has been having a productive cough, and decreased appetite since he came back from his trip. He states that he has also been feeling a little lightheaded but he thinks this could be related to the NyQuil that he has been taking for the past 4 days. He denies any runny nose, nasal congestion, sore throat. He denies any fever or chills but states that night he was diaphoretic. He denies any chest pain or shortness of breath. He denies any vomiting, diarrhea or abdominal pain. He denies any dysuria, urinary frequency or urgency. He states that there was one daniel who went down to [place] with him who was sick with a stomach virus but otherwise denies any known COVID-19 contacts. He states that he did get the COVID-19 Pfizer vaccine about 3 months ago. He denies tobacco use. He denies any other significant past history. MD Complaint: cough, other (chest congestion ) -: Gradual, days(s) (4) - Related Data Previous Rx's Medication Instructions Recorded Last Taken Type oxyCODONE /ACETAMINOPHEN [Percocet 1 tab PO Q4H PRN #30 tablet 08/01/16 Unknown Rx 5/325 mg] Carbamide Peroxide 6.5% [Ear Wax 0 drops OT DAILY #1 bottle 09/14/18 Unknown Rx Drops] Neomycin/Polymyxin B Sulf/Hc 4 drop AU TID #1 bottle 09/14/18 Unknown Rx [NEOMY/POLY/HC 3.5mg/19841lgxpq/10mg OTIC] Amoxicillin/Potassium Clav 1 each PO Q12HR #20 tablet 12/05/20 Unknown Rx [Augmentin 875-125 Tablet] Azithromycin [Zithromax Z-RACHELE] 250 mg PO DAILY #1 pack 12/05/20 Unknown Rx Benzonatate [Tessalon Perles] 100 mg PO Q8HR PRN #30 capsule 12/05/20 Unknown Rx Allergies Allergy/AdvReac Type Severity Reaction Status Date / Time No Known Allergies Allergy Verified 12/05/20 07:15 ED Review of Systems ROS: Stated complaint: CONGESTED Other details as noted in HPI Comment: All other systems reviewed and negative Constitutional: no symptoms reported Eyes: denies: eye pain, eye discharge, vision change ENT: denies: ear pain, throat pain, dental pain, hearing loss, epistaxis, congestion Respiratory: cough. denies: shortness of breath, SOB with exertion, SOB at rest, stridor, wheezing Cardiovascular: denies: chest pain, palpitations, dyspnea on exertion, orthopnea, edema, syncope Gastrointestinal: as per HPI, other (Decreased appetite). denies: abdominal pain, nausea, vomiting, diarrhea, constipation, hematemesis, melena, hematochezia Genitourinary: denies: urgency, dysuria, frequency, hematuria, discharge, testicular pain, testicular mass Musculoskeletal: denies: back pain, joint swelling, arthralgia Skin: denies: rash, lesions, change in color, change in hair/nails, pruritus Neurological: denies: headache, weakness, paresthesias, confusion, abnormal gait, vertigo Psychiatric: denies: anxiety, depression, auditory hallucinations, visual hallucinations, homicidal thoughts, suicidal thoughts Hematological/Lymphatic: denies: easy bleeding, easy bruising, swollen glands ED Past Medical Hx - Past Medical History Hx Hypertension: Yes Hx Heart Attack/AMI: No Hx Congestive Heart Failure: No Hx Deep Vein Thrombosis: No Hx Arthritis: Yes Hx HIV: No Additional medical history: Recent ABD Pain - Surgical History Hx Pacemaker: No Hx Internal Defibrillator: No Additional Surgical History: umbilical hernia - Social History Smoking Status: Never Smoker Substance Use Type: Alcohol, Prescribed - Medications Home Medications: Home Medications Medication Instructions Recorded Confirmed Last Taken Type oxyCODONE /ACETAMINOPHEN [Percocet 1 tab PO Q4H PRN #30 tablet 08/01/16 Unknown Rx 5/325 mg] Carbamide Peroxide 6.5% [Ear Wax 0 drops OT DAILY #1 bottle 09/14/18 Unknown Rx Drops] Neomycin/Polymyxin B Sulf/Hc 4 drop AU TID #1 bottle 09/14/18 Unknown Rx [NEOMY/POLY/HC 3.5mg/74862gyvmj/10mg OTIC] Amoxicillin/Potassium Clav 1 each PO Q12HR #20 tablet 12/05/20 Unknown Rx [Augmentin 875-125 Tablet] Azithromycin [Zithromax Z-RACHELE] 250 mg PO DAILY #1 pack 12/05/20 Unknown Rx Benzonatate [Tessalon Perles] 100 mg PO Q8HR PRN #30 capsule 12/05/20 Unknown Rx ED Physical Exam - General Limitations: No Limitations General appearance: alert, in no apparent distress - Head Head exam: Present: atraumatic, normocephalic, normal inspection - Eye Eye exam: Present: normal appearance, PERRL, EOMI Pupils: Present: normal accommodation - ENT ENT exam: Present: normal exam, mucous membranes moist, TM's normal bilaterally - Neck Neck exam: Present: normal inspection, full ROM. Absent: meningismus - Respiratory Respiratory exam: Present: normal lung sounds bilaterally, rales (left lung base). Absent: respiratory distress, wheezes, rhonchi, stridor - Cardiovascular Cardiovascular Exam: Present: regular rate, normal rhythm, normal heart sounds - GI/Abdominal GI/Abdominal exam: Present: soft. Absent: distended, tenderness, guarding, rebound - Neurological Exam Neurological exam: Present: alert, oriented X3, CN II-XII intact, normal gait - Psychiatric Psychiatric exam: Present: normal affect, normal mood - Skin Skin exam: Present: intact ED Course Vital Signs 12/05/20 12/05/20 12/05/20 07:14 09:30 09:41 Temperature 99.2 F 98.6 F 98.6 F Pulse Rate 95 H 92 H 92 H Respiratory 20 16 Rate Blood Pressure 136/85 Blood Pressure 145/64 [Left] Blood Pressure 136/85 [Right] O2 Sat by Pulse 95 95 Oximetry ED Medical Decision Making - Lab Data Result diagrams: 12/05/20 08:34 12/05/20 08:34 - Radiology Data Radiology results: report reviewed Patient: ARANZA SIMON MR#: [id number] 3 : 1950 Acct:[id number] Age/Sex: 69 / M ADM Date: 12/05/20 Loc: ED Attending Dr: Ordering Physician: LA NENA ROSADO Date of Service: 12/05/20 Procedure(s): XR chest 1V ap Accession Number(s): [id number] cc: LA NENA Wells Time In Minutes: . XR chest 1V ap INDICATION / CLINICAL INFORMATION: cough/chest congestion. COMPARISON: None available. FINDINGS: SUPPORT DEVICES: None. HEART /PULMONARY VASCULATURE: No significant abnormality. LUNGS / PLEURA: Patchy airspace opacities are present within the left mid and lower lung. Right lung is essentially clear. No pneumothorax. ADDITIONAL FINDINGS: No significant additional findings. IMPRESSION: 1. Patchy airspace opacity in the left mid and lower lung, concerning for pneumonia Signer Name: Elenita Lopez MD Signed: 12/05/2020 9:06 AM Workstation Name: [id number] Transcribed By: TURNER Dictated By: ELENITA LOPEZ MD Electronically Authenticated By: ELENITA LOPEZ MD Signed Date/Time: 12/05/20905 DD/ 5 TD/TT: - Medical Decision Making 1115: Patient currently resting comfortably. He is not in any acute pain or respiratory distress. He is not toxic or ill-appearing. He is neurologically intact and has been observed ambulating in the ER with a normal gait. His vital signs have been stable. Labs reviewed, - CBC was unremarkable, CMP showed mild hyponatremia with a sodium of 132, his glucose was elevated at 164, and his creatinine was mildly elevated at 1.6 but otherwise remainder of the CMP was unremarkable. Patient was given a dose of IV fluids here in the ER. His chest x-ray showed IMPRESSION: Patchy airspace opacity in the left mid and lower lung, concerning for pneumonia Patient was ambulated in the ER, and the lowest that his oxygen saturation dropped was 93% on room air. He did not express feeling short of breath and he did not appear to be in any respiratory distress. He was able to ambulate normally. Discussed case with Dr Heredia -- he recommends discharge if patient does not live by himself. If he does live by himself recommend admission. Discussed all labs and x-ray results with patient. Patient states that he lives with his and daughter. Overall patient appears well. He is stable at this time for discharge with prescription for antibiotics and something for cough but patient was given strict warnings to return if at any point his symptoms worsens in any way. Patient expressed understanding of all instru ctions and agree with plan. Critical care attestation.: If time is entered above; I have spent that time in minutes in the direct care of this critically ill patient, excluding procedure time. ED Disposition Clinical Impression: Pneumonia, Dehydration, Acute kidney injury Disposition: 01 HOME / SELF CARE / HOMELESS Is pt being admited?: No Does the pt Need Aspirin: No Condition: Stable Instructions: Acute Kidney Injury, Adult, Dehydration, Adult, [id number], Community-Acquired Pneumonia, Adult, [id number], Bacterial Pneumonia (ED) Additional Instructions: I recommend that you take the Zithromax as prescribed. I recommend that you drink lots of fluids especially water over the next few days. Recommend that you rest. I do also recommend that you take COVID-19 test once you leave here today. Recommend that you quarantine at home until you get the results of your test. Follow-up closely with your primary care doctor in the next 2 to 3 days but return to the ER if at any point your symptoms worsen, with worsening cough, development of any shortness of breath, chest pain and fever. Prescriptions: Amoxicillin/Potassium Clav [Augmentin 875-125 Tablet] 1 each PO Q12HR #20 tablet Benzonatate [Tessalon Perles] 100 mg PO Q8HR PRN #30 capsule PRN Reason: Cough Azithromycin [Zithromax Z-RACHELE] 250 mg PO DAILY #1 pack Referrals: PRIMARY CARE, [Primary Care Provider] - 3-5 Days Forms: Work/School Release Form(ED) Time of Disposition: 11:23
--- NOTE | 2020-12-05 09:11 | XRay Report ---
. XR chest 1V ap INDICATION / CLINICAL INFORMATION: cough/chest congestion. COMPARISON: None available. FINDINGS: SUPPORT DEVICES: None. HEART /PULMONARY VASCULATURE: No significant abnormality. LUNGS / PLEURA: Patchy airspace opacities are present within the left mid and lower lung. Right lung is essentially clear. No pneumothorax. ADDITIONAL FINDINGS: No significant additional findings. IMPRESSION: 1. Patchy airspace opacity in the left mid and lower lung, concerning for pneumonia Signer Name: Nic Lopez MD Signed: 12/05/2020 9:06 AM Workstation Name: [id number]
[2020-12-05 09:43] VITALS: BP 136/85
[2020-12-05 09:46] LABS: Basophils % (Auto) 0.1 % (0.0-1.8); Eosinophils % (Auto) 0.1 % (0.0-4.3); Hematocrit 39.9 % (35.5-45.6); Hemoglobin 13.4 gm/dl (11.8-15.2); Lymphocytes % (Auto) 10.2 % (13.4-35.0); Mean Corpuscular HGB Conc 34 % (32-34); Mean Corpuscular Volume 94 fl (84-94); Monocytes # (Auto) 1.2 K/mm3 (0.0-0.8); Monocytes % (Auto) 11.8 % (0.0-7.3); Platelet Count 238 K/mm3 (140-440); Red Blood Count 4.23 M/mm3 (3.65-5.03); Red Cell Distribution Width 16.1 % (13.2-15.2)
[2020-12-05 09:59] LABS: Albumin 3.7 g/dL (3.9-5); Calcium 10.2 mg/dL (8.4-10.2)
[2020-12-05 11:04] LABS: Bilirubin,Urine NEG (Negative); Blood,Urine MOD (Negative); Color,Urine Yellow (Yellow); Mucus,Urine FEW /HPF; Urobilinogen,Urine < 2.0 mg/dL (<2.0)
[2020-12-05] MEDS ORDERED: AMOXICILLIN/K CLAV 875/125MG TAB PO ONE (11:23)
[2020-12-05] MEDS ORDERED: AZITHROMYCIN 250 MG TAB PO ONE (11:23)
== END 2020-12-05 12:19 | disposition home or self-care (01) ==
LOC: ED 06:05
DX: S37.009A Unspecified injury of unspecified kidney, initial encounter (principal); J18.9 Pneumonia, unspecified organism; E86.0 Dehydration; I10 Essential (primary) hypertension; M19.90 Unspecified osteoarthritis, unspecified site; R10.9 Unspecified abdominal pain; Z98.890 Other specified postprocedural states; X58.XXXA Exposure to other specified factors, initial encounter; Y93.89 Activity, other specified; Y92.89 Other specified places as the place of occurrence of the external cause; Y99.8 Other external cause status
CPT/HCPCS: 36415; 71045; 80053; 81001; 85025; 99284; J7040